=== PATIENT | male | born 1960 | race Caucasian/White ===

== ENCOUNTER → 2022-01-24 13:43 | Outpatient (CLI) | payer OTHER, SELFPAY ==
--- NOTE | ~2022-01-24 | US_ITS ---
EXAMINATION: US carotid duplex BI DATE: 01/24/2022 14:04 INDICATION: Near syncope. TECHNIQUE: Grayscale, color Doppler, and pulsed Doppler images of the cervical carotid arteries were obtained. The degree of vessel stenosis is placed in one of the following categories: normal, <50%, 5 0-69%, >=70% but less than near-occlusion, near-occlusion, or total occlusion. Note that percent sten osis relative to normal distal artery lumen diameter is indirectly measured from velocity measurement s as described by Galo, et al. Radiology 2003; 229:340-346. Notes: Normal: Peak systolic velocity <125 centimeters/sec and no plaque <50%. Peak systolic velocity <125 ( EDV <40; ICA/CCA PSV ratio <2.0; used these factors only a tandem lesions or low cardiac output or co ntralateral disease) 50-69 %: PSV 125-230 (EDV 40-100; ratio 2-4) >= 70% but less than near occlusion: PSV greater than 230 (EDV > 100; ratio> 4.0) Near Occlusion: PSV that is variable; markedly narrowed lumen Occlusion: Absent flow on color/spectral Doppler and no lumen on wallace scale. COMPARISON: None. FINDINGS: RIGHT: The right common carotid artery (CCA) peak systolic velocity (PSV) is 88 cm/s. The right internal car otid artery (ICA) PSV is 52 cm/s. The right ICA end-diastolic velocity (EDV) is 11 cm/s. The right IC A/CCA PSV ratio is 0.6. The external carotid artery (ECA) PSV is 71 cm/s. There is antegrade flow in the right vertebral artery. LEFT: The left CCA PSV is 88 cm/s. The left ICA PSV is 71 cm/s. The left ICA EDV is 19 cm/s. The left ICA/C CA PSV ratio is 0.8. The ECA PSV is 47 cm/s. There is antegrade flow in the left vertebral artery. IMPRESSION: 1. Less than 50% stenosis in the right internal carotid artery by sonographic criteria. 2. Less than 50% stenosis in the left internal carotid artery by sonographic criteria. Reviewed, dictated and finalized at location B. IMPRESSION: 1. Less than 50% stenosis in the right internal carotid artery by sonographic evangelista rajan. 2. Less than 50% stenosis in the left internal carotid artery by sonographic osvaldo adan.
== END ==
PROVIDERS: PCP Physician Assistant; Visit Provider Physician Assistant
DX: R29.90 Unspecified symptoms and signs involving the nervous system (principal); R55 Syncope and collapse; I65.23 Occlusion and stenosis of bilateral carotid arteries
CPT/HCPCS: 93880

== ENCOUNTER 2022-02-01 14:28 | Outpatient (CLI) | payer OTHER, SELFPAY ==
--- NOTE | ~2022-02-01 | MR_ITS ---
EXAMINATION: MR brain/brain stem wo/w con DATE: 02/01/2022 15:25 INDICATION: Stroke. Dizziness. Near syncope. TECHNIQUE: Magnetic resonance imaging (MRI) of the brain and brainstem was performed without and with 17 mL MultiHance intravenous contrast. COMPARISON: None. FINDINGS: There is no intracranial hemorrhage, acute infarction, or abnormal intracranial mass lesion . There are scattered areas of nonspecific increased T2-weighted signal intensity in the cerebral whi te matter, which is within normal limits for the patient's age. The ventricles are normal in size. Th e paranasal sinuses are clear. The orbits are normal. There is a small left mastoid effusion. IMPRESSION: 1. Normal aging brain. Reviewed, dictated and finalized at location A. IMPRESSION: 1. Normal aging brain.
== END 2022-02-01 14:29 | disposition home or self-care (01) ==
PROVIDERS: PCP Physician Assistant; Visit Provider Physician Assistant
DX: R29.90 Unspecified symptoms and signs involving the nervous system (principal); R55 Syncope and collapse
CPT/HCPCS: 70553; A9577

== ENCOUNTER 2023-05-10 09:13 | Outpatient (CLI) | payer OTHER, SELFPAY ==
--- NOTE | ~2023-05-10 | XR_ITS ---
Left foot Technique: AP, oblique, and lateral views were obtained. Clinical History: Pain Findings: No acute fracture or dislocation is seen. Osseous alignment is anatomic. Joint spaces are p reserved without erosive or degenerative change. Soft tissues are unremarkable. Impression: Unremarkable left foot radiographs. Reviewed, dictated and finalized at location . TENANT GOVERNOR Impression: Unremarkable left foot radiographs.
== END 2023-05-10 09:14 | disposition home or self-care (01) ==
PROVIDERS: PCP Family Medicine; Visit Provider Physician Assistant
DX: M79.672 Pain in left foot (principal)
CPT/HCPCS: 73630

== ENCOUNTER 2024-08-04 10:32 | Outpatient (CLI) | payer OTHER, SELFPAY ==
--- NOTE | ~2024-08-04 | CT_ITS ---
CT Scan of the Chest without Contrast: Clinical Indication: Lung cancer screening, nicotine dependence Technique: Contiguous sections were acquired throughout the chest without intravenous contrast. Dose reduction technique was used on this scan by utilizing automated exposure control and iterative recon struction technique. The dose-length product (DLP) was 163.91 mGy-cm. Findings: There is no evidence of any significant mediastinal, hilar or axillary lymphadenopathy. Extensive cor onary artery calcifications are present. Probable prior CABG. There is no evidence of pleural or pericardial effusion. No pulmonary nodule evident. There is minimal bibasilar scarring or atelectatic change. Images through the upper abdomen reveal no abnormalities. Impression: Lung RADS 1: Negative. 12 month follow-up screening CT advised. Reviewed, dictated and finalized at location . Impression: Lung RADS 1: Negative. 12 month follow-up screening CT advised.
--- OUTSIDE RECORDS SUMMARY | 2024-08-04 11:48 | XMS_ITS ---
Author Organization Unknown Address [address] [place] [phone] Phone Care Team Providers Care Senior Science Consultant Name Role Phone POLO MILLAN Attending Unavailable ER PHYSICIAN Secondary Unavailable Results CBC w/AUTOMATED DIFF - Colle ct Date/Time: 01/18/2022 09:45 [facility] ID: [id number] [address] [place], [place], [id number] LOINC: 35509-3 Test Value Unit Reference Range Code Code System Flag WBC 7.4 th/ul L=4.0 H=10.5 6690-2 LOINC RBC 4.82 mil/ul L=4.50 H=6.00 789-8 LOINC HGB 15.9 g/dl L=13.5 H=18.0 718-7 LOINC HCT 44.8 % L=41.0 H=52.0 4544-3 LOINC MCV 93 fL L=78 H=100 787-2 LOINC MCH 33.0 pg L=27.0 H=32.0 785-6 LOINC H MCHC 35.5 g/dl L=32.0 H=36.0 786-4 LOINC RDW 11.8 % L=11.0 H=14.0 788-0 LOINC PLATELET 307 th/ul L=150 H=450 777-3 LOINC %NEUT 59.7 % L=50.0 H=70.0 770-8 LOINC %LYMPH 26.1 % L=20.0 H=40.0 736-9 LOINC %MONO 11.7 % L=0.0 H=10.0 5905-5 LOINC H %EOS 1.2 % L=0.0 H=3.0 713-8 LOINC %BASO 1.2 % L=0.0 H=2.0 706-2 LOINC %IG 0.1 % L=0.0 H=2.0 #NEUT 4.4 th/ul 751-8 LOINC #LYMPHS 1.9 th/ul 731-0 LOINC #MONOS 0.9 th/ul 742-7 LOINC #EOS 0.1 th/ul 711-2 LOINC #BASO 0.1 th/ul 704-7 LOINC #IG 0.0 th/uL 38376-6 LOINC NRBC 0 /100 WBC L=0 H=0 MANUAL DIFF NOT INDICATED 14962-7 LOINC COMPREHENSIVE METABOLIC PROF ILE - Collect Date/Time: 01/18/2022 09:45 [facility] ID: [id number] [address] [place] [address], [phone] LOINC: 69738-7 Test Value Unit Reference Range Code Code System Flag SODIUM 134 mmol/L L=136 H=145 2951-2 LOINC L POTASSIUM 3.9 mmol/L L=3.5 H=5.0 2823-3 LOINC CHLORIDE 99 mmol/L L=98 H=107 2075-0 LOINC CO2 18.6 mmol/L L=22.0 H=29.0 1962-0 LOINC L BUN 11 mg/dl L=6 H=21 3094-0 LOINC CREATININE 0.9 mg/dl L=0.7 H=1.2 2160-0 LOINC GLUCOSE 123 mg/dl L=74 H=109 2345-7 LOINC H CALCIUM 9.9 mg/dl L=8.6 H=10.5 49508-1 LOINC SGOT(AST) 24 U/L L=5 H=40 1920-8 LOINC SGPT(ALT) 25 U/L L=5 H=41 1744-2 LOINC ALKALINE PHOS 89 U/L L=40 H=129 6768-6 LOINC BILIRUBIN T 0.75 mg/dl L=0.00 H=1.20 1975-2 LOINC TOTAL PROTEIN 8.8 g/dL L=6.1 H=8.1 2885-2 LOINC H ALBUMIN 5.1 g/dl L=3.5 H=5.2 1751-7 LOINC GLOBULIN 3.7 g/dl L=2.3 H=3.5 65823-0 LOINC H A/G RATIO 1.4 % L=1.0 H=1.8 1759-0 LOINC AGE 61 yrs 53911-6 LOINC GFR-AA 111 L=60 H=999 33591-8 LOINC GFR-NON AA 91 L=60 H=999 41237-5 LOINC TROPONIN T - Collect Date/Ti me: 01/18/2022 09:45 [facility] ID: [id number] [address] [place] [address], [phone] LOINC: 6598-7 Test Value Unit Reference Range Code Code System Flag TROPONIN T < 0.010 ng/mL L=0.000 H=0.010 6598-7 LOINC PT(INR) / PTT - Collect Date /Time: 01/18/2022 09:45 [facility] ID: [id number] [address] [place] [address], [phone] LOINC: 15978-8 Test Value Unit Reference Range Code Code System Flag INR 1.0 L=0.9 H=1.2 6301-6 LOINC PTT W/O HEP 28 sec L=21 H=35 72466-9 LOINC PTT W HEP L=66 H=102 00893-0 LOINC PT ON IV HEPARIN? NO CK (CPK) - Collect Date/Time : 01/18/2022 09:45 [facility] ID: [id number] [address] [place] [address], [id number] LOINC: 2157-6 Test Value Unit Reference Range Code Code System Flag CK 79 U/L L=20 H=200 2157-6 LOINC CKMB - Collect Date/Time: 09:45 [facility] ID: [id number] [address] [place] [address], [id number] LOINC: 75645-7 Test Value Unit Reference Range Code Code System Flag CKMB 2 ng/ml L=0 H=8 90705-6 LOINC CK-CPK 79 U/L L=20 H=200 2157-6 LOINC MB% 2.5 % L=0.0 H=6.0 43764-1 LOINC MAGNESIUM - Collect Date/Eddie e: 01/18/2022 09:45 [facility] ID: [id number] [address] [place] [address], [phone] LOINC: 24740-1 Test Value Unit Reference Range Code Code System Flag MAGNESIUM 2.5 MG/DL L=1.6 H=2.6 91888-7 LOINC HGBA1C (GLYCOHEMOGLOBIN) - C ollect Date/Time: 01/18/2022 09:45 [facility] ID: [id number] [address] [place] [address], [phone] LOINC: 4548-4 Test Value Unit Reference Range Code Code System Flag HGBA1c(GLYCO) 5.8 % L=4.6 H=6.0 4548-4 LOINC MEAN BLD GLUC 120 mg/dl CHEST SINGLE VIEW FRONTAL - Completed: 01/18/2022 10:28 LOINC: \TM00\12FI\LM03\RM80\JENNA o\BM09\ \MRHo\ [address] [address] ---------NAME--------- NUMBER SEX AGE ADMIT DISC. XRAY# F/C TYPE LOCUS ABBEY JEFF [id number] M 61 01/18/22 CB8 O/P DATE OF : 1960 M/R# [id number] PH#: RM \MRHx\ LOCATION: TRANSCRIBED: 01/18/22 10:23 CHEST SINGLE VIEW FRONTAL [id number] COMPLETED:01/18/22 10:28 lianna [id number] presyncope, PHYSICIAN: POLO MILLAN RADIOLOGY REPORT ORDER DATE and TIME: 01/18/2022 0958 [id number] CHEST SINGLE VIEW FRONTAL DATE OF SERVICE: 01/18/22 09:58 PATIENT EXAM: Chest one-view AP erect HISTORY: Syncope COMPARISON: None FINDINGS: Cardiac silhouette and mediastinum are normal. Prior mediastinotomy . There is no pulmonary infiltrate. There minimal scarring or atelectasis left lower lobe There is no pleural effusion. Skeletal structures unremarkable IMPRESSION: Prior median sternotomy with heart size normal. No evidence of congestive heart failure or acute pulmonary infiltrate Minimal scarring or atelectasis in the left lower INTERPRETING RADIOLOGIST: Chau Mckinley D.O. ELECTRONICALLY SIGNED BY: Chau Mckinley D.O. Land Planner Initials: MLP Land Planner Time: 10:23 Land Planner Date: 01/18/22 Signed Date/Time: 01/18/22 10:23 UNSIGNED TRANSCRIPTIONS ARE PRELIMINARY REPORTS AND DO NOT REPRESENT MEDICAL OR LEGAL DOCUMENTS. CT HEAD WO - Completed: 12/29 10:29 LOINC: \TM00\12FI\LM03\RM80\JENNA o\BM09\ \MRHo\ [address] [address] ---------NAME--------- NUMBER SEX AGE ADMIT DISC. XRAY# F/C TYPE LOCUS ABBEY JEFF [id number] M 61 01/18/22 CB8 O/P DATE OF : 1960 M/R# [id number] PH#: RM \MRHx\ LOCATION: TRANSCRIBED: 01/18/22 10:[place] [id number] COMPLETED:01/18/22 10:29 lianna [id number] presyncope vision changes PHYSICIAN: POLO MILLAN RADIOLOGY REPORT ORDER DATE and TIME: 01/18/[id number] HEAD WO DATE OF SERVICE: 01/18/22 09:58 PATIENT EXAM: CT of the head without contrast. HISTORY: Near syncope. COMPARISON: None. TECHNIQUE: Contiguous axial images at 5 mm intervals were obtained from the base of the skull to the vertex of the calvarium. No contrast was given. FINDINGS: Extra-axial spaces: The CSF-containing spaces are normal in size and position.There are no extraaxial fluid collections. Hemorrhage: None Cerebral Parenchyma: There are no areas of abnormal density. Mcclain-white differentiation is normal. Cerebellum: Normal. Masses/Mass effect: None. There is no midline shift. Vasculature: Normal. Osseus Structures: Normal. Soft tissues/Sinuses: Normal. IMPRESSION: No acute intracranial abnormality. All CT scans are performed using dose optimization techniques as appropriate to the performed exam and include at least one of the following: Automated exposure control, adjustment of the mA and/or kV according to size, and the use of iterative reconstruction technique. INTERPRETING RADIOLOGIST: Elias Villa M.D. ELECTRONICALLY SIGNED BY: Elias Villa M.D. Land Planner Initials: JJB Land Planner Time: 10:24 Land Planner Date: 01/18/22 Signed Date/Time: 01/18/22 10:24 UNSIGNED TRANSCRIPTIONS ARE PRELIMINARY REPORTS AND DO NOT REPRESENT MEDICAL OR LEGAL DOCUMENTS. Social History Type Status Start Date End Date Code Code Syst em Sex Male Hospital Discharge Instructions Should you have any questions prior to discharge, please contact a member of your healthcare team. If you have left the hospital and have any questions, please contact your primary care physician. Reason For Referral No Data Found Plan of Treatment No Data Found Encounters Encounter Diagnosis Start Date Code Code Sys tem Syncope and collapse 01/18/2022 SNOMED- CT Personal Care Team Section Performer Name Performer Role Active Date Inactive Da te Imaging Narrative Notes [facility] \TM00\12FI\LM03\RM80\DRAo\BM09\ \MRHo\ [address] [address] ---------NAME--------- NUMBER SEX AGE ADMIT DISC. XRAY# F/C TYPE LOCUS ABBEY JEFF [id number] M 61 01/18/22 CB8 O/P DATE OF : 1960 M/R# [id number] #: RM \MRHx\ LOCATION: TRANSCRIBED: 01/18/22 10:[place] [id number] COMPLETED:01/18/22 10:29 lianna [id number] presyncope vision changes PHYSICIAN: POLO MILLAN RADIOLOGY REPORT ORDER DATE and TIME: 01/18/[id number] HEAD WO DATE OF SERVICE: 01/18/22 09:58 PATIENT EXAM: CT of the head without contrast. HISTORY: Near syncope. COMPARISON: None. TECHNIQUE: Contiguous axial images at 5 mm intervals were obtained from the base of the skull to the vertex of the calvarium. No contrast was given. FINDINGS: Extra-axial spaces: The CSF-containing spaces are normal in size and position.There are no extraaxial fluid collections. Hemorrhage: None Cerebral Parenchyma: There are no areas of abnormal density. Mcclain-white differentiation is normal. Cerebellum: Normal. Masses/Mass effect: None. There is no midline shift. Vasculature: Normal. Osseus Structures: Normal. Soft tissues/Sinuses: Normal. IMPRESSION: No acute intracranial abnormality. All CT scans are performed using dose optimization techniques as appropriate to the performed exam and include at least one of the following: Automated exposure control, adjustment of the mA and/or kV according to size, and the use of iterative reconstruction technique. INTERPRETING RADIOLOGIST: Elias Villa M.D. ELECTRONICALLY SIGNED BY: Elisa Villa M.D. Land Planner Initials: JJB Land Planner Time: : Land Planner Date: 01/18/22 Signed Date/Time: 01/18/22 10:24 UNSIGNED TRANSCRIPTIONS ARE PRELIMINARY REPORTS AND DO NOT REPRESENT MEDICAL OR LEGAL DOCUMENTS. [facility] \TM00\12FI\LM03\RM80\DRAo\BM09\ \MRHo\ [address] [address] ---------NAME--------- NUMBER SEX AGE ADMIT DISC. XRAY# F/C TYPE LOCUS ABBEY JEFF [id number] M 61 01/18/22 CB8 O/P DATE OF : 1960 M/R# [id number] PH#: RM \MRHx\ LOCATION: TRANSCRIBED: 01/18/22 10:23 CHEST SINGLE VIEW FRONTAL [id number] COMPLETED:01/18/22 10:28 lianna [id number] presyncope, PHYSICIAN: POLO MILLAN RADIOLOGY REPORT ORDER DATE and TIME: 01/18/2022 0958 [id number] CHEST SINGLE VIEW FRONTAL DATE OF SERVICE: 01/18/22 09:58 PATIENT EXAM: Chest one-view AP erect HISTORY: Syncope COMPARISON: None FINDINGS: Cardiac silhouette and mediastinum are normal. Prior mediastinotomy . There is no pulmonary infiltrate. There minimal scarring or atelectasis left lower lobe There is no pleural effusion. Skeletal structures unremarkable IMPRESSION: Prior median sternotomy with heart size normal. No evidence of congestive heart failure or acute pulmonary infiltrate Minimal scarring or atelectasis in the left lower INTERPRETING RADIOLOGIST: Cahu Mckinley D.O. ELECTRONICALLY SIGNED BY: Chau Mckinley D.O. Land Planner Initials: MLP Land Planner Time: : Land Planner Date: 01/18/22 Signed Date/Time: 01/18/22 10:23 UNSIGNED TRANSCRIPTIONS ARE PRELIMINARY REPORTS AND DO NOT REPRESENT MEDICAL OR LEGAL DOCUMENTS.
--- OUTSIDE RECORDS SUMMARY | 2024-08-04 11:48 | XMS_ITS | Encounter Summary ---
Author Organization [facility] Address [id number] [place] [address] Care Team Providers Care Boat Carpenter Mechanic Name Role Phone Nilsa Lemus MD Primary Care Provider [phone] Osmin Disla MD Unavailable Encounter Details Date Type Department Care Team (Late st Contact Info) Description 09/26/2022 Copper Mobile Message Enc [facility], [facility] [address] [place] [address] Osmin Disla MD [facility]. [facility] [address] [place] [address] Swelling Social History Tobacco Use Types Packs/Day Years Used Date Smoking Tobacco: Former Cigarettes 2 32 0 04/29/1981 - 04/29/2013 Smokeless Tobacco: Never Alcohol Use Standard Drinks/Week Comments Yes 50 (1 standard drink = 0.6 oz pu re alcohol) 4 DRINKS A NIGHT Humiliation, Afraid, Rape, and Kick questionnair e Answer Date Recorded Within the last year, have y ou been afraid of your partner or ex-partner? No 09/17/2022 Within the last year, have y ou been humiliated or emotionally abused in other ways by your partner or ex-partner? No Within the last year, have y ou been kicked, hit, slapped, or otherwise physically hurt by your partner or ex-partner? No 09/17/2022 Within the last year, have y ou been raped or forced to have any kind of sexual activity by your partner or ex-partner? No 09/17/2022 Overall Financial Resource Strain (CARDIA) Answe r Date Recorded How hard is it for you to pa y for the very basics like food, housing, medical care, and heating? Not hard at all 09/17/2022 Hunger Vital Sign Answer Date Recorded Within the past 12 months, y ou worried that your food would run out before you got the money to buy more. Never true 09/18/19 23 Within the past 12 months, t he food you bought just didn't last and you didn't have money to get more. Never true 09/17/2022 PRAPARE - Transportation Answer Date Re corded In the past 12 months, has l ack of transportation kept you from medical appointments or from getting medications? No 08/28 In the past 12 months, has l ack of transportation kept you from meetings, work, or from getting things needed for daily living? No 09/17/2022 Housing Stability Vital Sign Answer Vikram e Recorded In the last 12 months, was t here a time when you were not able to pay the mortgage or rent on time? No 09/17/2022 In the last 12 months, how many places have you lived? 1 09/17/2022 In the last 12 months, was t here a time when you did not have a steady place to sleep or slept in a senior care (including now)? No 09/17/2022 Sex and Gender Information Value Date Recorded Sex Assigned at Not on file Legal Sex Male 4:06 PM CDT Gender Identity Not on file Sexual Orientation Not on file COVID-19 Exposure Response Date Recorded In the last 10 days, have yo u been in contact with someone who was confirmed or suspected to have Coronavirus/COVID-19? No / Unsure 09/17/2022 5:35 AM CDT documented as of this encounter Functional Status * Are you deaf or do you have serious difficulty hearing Answer Date of Assessment Author Status No 09/17/2022 3:41 PM CDT Chapis Murphy RN Active * Are you blind or do you have serious difficulty seeing, even when wearing glasses? Answer Date of Assessment Author Status No 09/17/2022 3:41 PM Chapis Valente RN Active * Do you have serious difficulty walking or climbing stairs? Answer Date of Assessment Author Status No 09/17/2022 3:41 PM Chapis Valente RN Active * Do you have difficulty dressing or bathing? Answer Date of Assessment Author Status No 09/17/2022 3:41 PM Chapis Valente RN Active * Because of a physical, mental, or emotional condition, do you have difficulty doing errands alone such as visiting a doctor's office or shopping? Answer Date of Assessment Author Status No 09/17/2022 3:41 PM Chapis Valente RN Active documented as of this encounter Mental Status * Because of a physical, mental, or emotional condition, do you have serious difficulty concentrating, remembering, or making decisions? Answer Entry Date Author Status No 09/17/2022 3:41 PM Chapis Valente RN Active documented in this encounter Plan of Treatment Not on file documented as of this encounter Goals Goal Patient Goal Type Associated Problems Recent Progress Patient-Stated? Author Health - patient able to perform ADLs independently Lifestyle No Jayla Magaña RN documented as of this encounter Visit Diagnoses Not on filedocumented in this encounter Care Teams Boat Carpenter Mechanic Relationship Specialty Start Date End Date Nilsa Lemus MD [address] [place] [id number] PCP - General FAMILY PRACTICE 01/27/22 Osmin Disla MD [address] [address] Referring Physician VASCULAR SURGERY 01/27/22 documented as of this encounter
--- OUTSIDE RECORDS SUMMARY | 2024-08-04 11:48 | XMS_ITS | Encounter Summary ---
Author Organization [facility] Address [facility] [place] [address] Care Team Providers Care Telecommunications Line Installer Name Role Phone Nilsa Lemus MD Primary Care Provider [phone] Osmin Disla MD Unavailable Reason for Referral * Surgical (Routine) - Closed Specialty Diagnoses / Procedures Referred By Puneet santana Referred To Contact Diagnoses PVD (peripheral vascular disease) Procedures Case request operating room: BYPASS GRAFT FEMORAL POSTERIOR Osmin Disla MD [facility]. [facility] [address] [place] [address] Phone: tel: fax: Referral ID Status Reason Start Date Expiration Date Visits Re quested Visits Authorized [id number] Closed 08/22/2022 08/23/2023 1 1 Encounter Details Date Type Department Care Team (Late st Contact Info) Description 08/22/2022 Prep for Procedure [place] [facility] [place] [address] [place] [address] [facility]. [facility] [address] [place] [address] Social History Tobacco Use Types Packs/Day Years Used Date Smoking Tobacco: Former Cigarettes Q uit: 04/29/2013 Smokeless Tobacco: Never Alcohol Use Standard Drinks/Week Comments Yes 50 (1 standard drink = 0.6 oz pu re alcohol) 4 DRINKS A NIGHT Sex and Gender Information Value Date Recorded Sex Assigned at Not on file Legal Sex Male 4:06 PM CDT Gender Identity Not on file Sexual Orientation Not on file COVID-19 Exposure Response Date Recorded In the last 10 days, have yo u been in contact with someone who was confirmed or suspected to have Coronavirus/COVID-19? No / Unsure 08/20/2022 6:15 AM CDT documented as of this encounter Plan of Treatment Scheduled Orders Name Type Priority Associated Diagnoses Orde r Schedule Case request operating room: BYPASS GRAFT FEMORAL POSTERIOR Case Request Routine PVD (peripheral vascular disease) Once for 1 Occurrences starting 08/22/2022 until 08/22/2022 documented as of this encounter Results * MRSA SCREENING (09/03/2022 12:13 PM CDT) SPEC DESCRIPTION NASAL 09/03/2022 12:14 PM CDT [facility] SPECIAL REQUESTS NO SPECIAL REQUEST 09/03/2022 12:14 PM CDT [facility] CULTURE RESULT NO METHICILLIN RESISTANT STAPHYLOCOCCUS AUREUS ISOLATED 09/04/2022 11:06 AM CDT [facility] SPECIMEN FROM INTERNAL NOSE / Unknown 09/03/2022 12:13 PM CDT 09/03/2022 12:24 PM CDT Osmin Disla MD MICROBIOLOGY - GENERAL ORDERABLE S Final Result [facility] [address] [place] [address], [place] [phone] * (ABNORMAL) COMPREHENSIVE METABOLIC PANEL (09/03/2022 12:10 PM CDT) GLUCOSE 115(H) 70 - 99 MG/DL 09/03/2022 12:53 PM CDT [facility] BUN 15 7 - 18 MG/DL 09/03/2022 12:53 PM CDT [facility] CREATININE S/P/B 1.01 0.7 - 1.3 MG/DL 09/03/2022 12:53 PM CDT [facility] SODIUM S/P/B 134(L) 136 - 145 MMOL/L 09/03/2022 12:53 PM CDT [facility] POTASSIUM S/P/B 3.7 3.5 - 5.1 MMOL/L 09/03/2022 12:53 PM CDT [facility] CHLORIDE S/P/B 104 100 - 108 MMOL/L 09/03/2022 12:53 PM CDT [facility] CO2 24.0 21 - 32 MMOL/L 09/03/2022 12:53 PM CDT [facility] CALCIUM S/P/B 9.9 8.5 - 10.1 MG/DL 09/03/2022 12:53 PM CDT [facility] BILIRUBIN TOTAL S/P/B 0.9 0.2 - 1.2 MG/DL 09/03/2022 12:53 PM CDT [facility] Comment: THIS ASSAY IS NOT RECOMMENDED FOR PATIENTS UNDERGOING TREATMENT WITH ELTROMBOPAG DUE TO THE POTENTIAL FOR FALSELY ELEVATED RESULTS. TOTAL PROTEIN S/P/B 7.8 6.4 - 8.2 G/DL 09/03/2022 12:53 PM T [facility] ALBUMIN S/P/B 3.9 3.4 - 5.0 G/DL 09/03/2022 12:53 PM CDT [facility] AST 17 15 - 37 U/L 09/03/2022 12:53 PM CDT [facility] ALT 22 16 - 60 U/L 09/03/2022 12:53 PM CDT [facility] ALKALINE PHOSPHATASE S/P/B 85 50 - 136 U/L 09/03/2022 12:53 PM CDT [facility] ANION GAP 6.0 5 - 15 MMOL/L 09/03/2022 12:53 PM CDT [facility] BUN CREATININE RATIO 14.9 6 - 26 09/03/2022 12:53 PM CDT [facility] A/G RATIO 1.0 1.0 - 2.0 RATIO 09/03/2022 12:53 PM CDT [facility] GFR ESTIMATE 85(L) >90 ML/MIN/1.7 3 M2 09/03/2022 12:53 PM CDT [facility] Comment: NOTE: eGFR is not calculated for patients <18 years of age. This is an estimated GFR calculation using the new CKD EPI creatinine equation without race and so does not require a correction factor for race. This estimated GFR should not be used for calculating drug doses. 09/03/2022 12:1 0 PM CDT us Osmin Disla MD LABORATORY Final Result Performing Organization Address City/[facility] Co de Phone Number [facility] [address] [place] [id number], [place] [phone] * PROTIME/INR, VENOUS (09/03/2022 12:10 PM CDT) PROTIME 12.0 10.2 - 12.9 SEC 09/03/2022 12:47 PM CDT [facility] INR 1.0 09/03/2022 12:47 PM CDT [facility] Comment: Recommended INR Therapeutic Goals: 2.0-3.0 Routine Therapy 2.5-3.5 Mechanical Prosthetic Valves (High Risk) 09/03/2022 12:1 0 PM CDT us Osmin Disla MD LABORATORY Final Result [facility] [address] [place] [address], * (ABNORMAL) CBC W/DIFF AUTOMATED (09/03/2022 12:10 PM CDT) [facility] WBC 8.3 4.5 - 11.0 x10'3/uL 09/03/2022 12:30 PM CDT [facility] RBC 4.02(L) 4.70 - 6.10 x10'6/uL 09/03/2022 12:30 PM CDT [facility] HGB 13.8(L) 14.0 - 18.0 G/DL 09/03/2022 12:30 PM CDT [facility] HCT 38.7(L) 43.0 - 54.0 % 09/03/2022 12:30 PM CDT [facility] MCV 96.3(H) 80.0 - 94.0 FL 09/03/2022 12:30 PM CDT [facility] MCH 34.3(H) 27.0 - 31.0 PG 09/03/2022 12:30 PM CDT [facility] MCHC 35.7 32.0 - 36.0 G/DL 09/03/2022 12:30 PM CDT [facility] RDW 12.5 11.5 - 14.5 % 09/03/2022 12:30 PM CDT [facility] PLT 326 130 - 400 x10'3/uL 09/03/2022 12:30 PM CDT [facility] MPV 8.9(L) 9.3 - 12.2 FL 09/03/2022 12:30 PM CDT [facility] DIFFERENTIAL TYPE AUTOMATED DIFFERENTIAL 09/03/2022 12:30 PM CDT [facility] NEUTROPHILS % 64.9 % 09/03/2022 12:30 PM CDT [facility] LYMPHOCYTES % 21.3 % 09/03/2022 12:30 PM CDT [facility] MONOCYTES % 11.7 % 09/03/2022 12:30 PM CDT [facility] EOSINOPHILS 0.8 % 09/03/2022 12:30 PM CDT [facility] BASOPHILS 1.1 % 09/03/2022 12:30 PM CDT [facility] IMMATURE GRANS % 0.2 % 09/04/19 12:30 PM CDT [facility] ABS. NEUTROPHILS TOTAL 5.35 1.80 - 7.70 x10'3/uL 09/03/2022 12:30 PM CDT [facility] ABS. LYMPHOCYTES 1.76 1.00 - 4.80 x10'3/uL 09/03/2022 12:30 PM CDT [facility] ABS. MONOCYTES 0.97(H) 0.30 - 0.82 x10'3/uL 09/03/2022 12:30 PM CDT [facility] ABS. EOSINOPHILS 0.07 0.04 - 0.54 x10'3/uL 09/03/2022 12:30 PM CDT [facility] ABS. BASOPHILS 0.09(H) 0.01 - 0.08 x10'3/uL 09/03/2022 12:30 PM CDT [facility] ABS. IMMATURE GRANULOCYTES 0.02 0.00 - 0.49 x10'3/uL 09/03/2022 12:30 PM CDT [facility] 09/03/2022 12:1 0 PM CDT us Osmin Disla MD LABORATORY Final Result [facility] [address] [place] [address], documented in this encounter Visit Diagnoses Diagnosis PVD (peripheral vascular disease)- Primary Peripheral vascular disease, unspecified documented in this encounter Care Teams Telecommunications Line Installer Relationship Specialty Start Date End Date Nilsa Lemus MD [address] [place], [place] [id number] PCP - General FAMILY PRACTICE 01/27/22 Osmin Disla MD Three [facility]. [facility] [address] [place] [address] Referring Physician VASCULAR SURGERY 01/27/22 documented as of this encounter
--- OUTSIDE RECORDS SUMMARY | 2024-08-04 11:48 | XMS_ITS | Encounter Summary ---
Author Organization [facility] Address [facility] [place] [address] Care Team Providers Care Math Teacher Name Role Phone Nilsa Lemus MD Primary Care Provider [phone] Osmin Disla MD Unavailable Encounter Details Date Type Department Care Team (Late st Contact Info) Description 07/06/2022 Prep for Procedure [place] [facility] THREE [facility], [facility] [address] [place] [address] Osmin Disla MD Three [facility]. [facility] [address] [place] [address] Social History Tobacco Use Types [...] suspected to have Coronavirus/COVID-19? No / Unsure 07/05/2022 1:09 PM MANAGER SOFTWARE DEVELOPMENT documented as of this encounter Plan of Treatment Not on file documented as of this encounter Visit Diagnoses Not on filedocumented in this encounter Care Teams Math Teacher Relationship Specialty Start Date End Date Nilsa Lemus MD [address] [place] [address] PCP - General FAMILY PRACTICE 01/27/22 Osmin Disla MD [address] [place] [address] Referring Physician VASCULAR SURGERY 01/27/22 documented as of this encounter
--- OUTSIDE RECORDS SUMMARY | 2024-08-04 11:48 | XMS_ITS | Encounter Summary ---
Author Organization [facility] Address [facility] [place] [address] Care Team Providers Care Field Seismologist Name Role Phone Nilsa Lemus MD Primary Care Provider [phone] Osmin Disla MD Unavailable Encounter Details Date Type Department Care Team (Late st Contact Info) Description 03/09/2022 Prep for Procedure [place] [facility] THREE [facility] [address] [place] [address] Osmin Disla MD Three [facility]. [facility] [address] [place] [address] Social History Tobacco Use Types [...] suspected to have Coronavirus/COVID-19? No / Unsure 03/08/2022 7:45 AM CASING WORKER documented as of this encounter Plan of Treatment Not on file documented as of this encounter Visit Diagnoses Not on filedocumented in this encounter Care Teams Field Seismologist Relationship Specialty Start Date End Date Nilsa Lemus MD [address] [place] [address] PCP - General FAMILY PRACTICE 01/27/22 Osmin Disla MD [address] [place] [address] Referring Physician VASCULAR SURGERY 01/27/22 documented as of this encounter
--- OUTSIDE RECORDS SUMMARY | 2024-08-04 11:49 | XMS_ITS | Encounter Summary ---
Author Organization [facility] Address [facility] [place] [address] Care Team Providers Care Joy Loader Name Role Phone Nilsa Lemus MD Primary Care Provider [phone] Osmin Disla MD Unavailable Encounter Details Date Type Department Care Team (Late st Contact Info) Description 10/18/2023 Prep for Procedure [place] [facility] THREE [facility], [facility] [address] [place] [address] Osmin Disla MD Three [facility]. [facility] [address] [place] [address] Social History Tobacco Use Types [...] on file Sexual Orientation Not on file documented as of this encounter Functional Status * Are you deaf or do you have serious difficulty hearing Answer Date of Assessment Author Status No 09/17/2022 3:41 PM BRYONT Chapis Murphy RN Active * Are you blind or do you have serious difficulty seeing, even when wearing glasses? Answer Date of Assessment Author Status No 09/17/2022 3:41 PM BRYONT Chapis Murphy RN Active * Do you have serious difficulty walking or climbing stairs? Answer Date of Assessment Author Status No 09/17/2022 3:41 PM BRYONT Chapis Murphy RN Active * Do you have difficulty dressing or bathing? Answer Date of Assessment Author Status No 09/17/2022 3:41 PM CDT Chapis Murphy RN Active * Because of a physical, mental, or emotional condition, do you have difficulty doing errands alone such as visiting a doctor's office or shopping? Answer Date of Assessment Author Status No 09/17/2022 3:41 PM CDT Chapis Murphy RN Active documented as of this encounter Mental Status * Because of a physical, mental, or emotional condition, do you have serious difficulty concentrating, remembering, or making decisions? Answer Entry Date Author Status No 09/17/2022 3:41 PM CDT Chapis Murphy RN Active documented in this encounter Plan of Treatment Not on file documented as of this encounter Goals Goal Patient Goal Type Associated Problems Recent Progress Patient-Stated? Author Health - patient able to perform ADLs independently Lifestyle No Jayla Magaña RN documented as of this encounter Visit Diagnoses Not on filedocumented in this encounter Care Teams Joy Loader Relationship Specialty Start Date End Date Nilsa Lemus MD [address] [place] [address] PCP - General FAMILY PRACTICE 01/27/22 Osmin Disla MD [address] [address] Referring Physician VASCULAR SURGERY 01/27/22 documented as of this encounter
--- OUTSIDE RECORDS SUMMARY | 2024-08-04 11:49 | XMS_ITS | Encounter Summary ---
Author Organization [facility] Address [facility] [place] [address] Care Team Providers Care Objective C Developer Name Role Phone Nilsa Lemus MD Primary Care Provider Osmin Disla MD Unavailable Encounter Details Date Type Department Care Team (Late st Contact Info) Description 04/27/2022 Prep for Procedure [place] [facility], [facility] [address] [place] [address] Osmin Disla MD Three [facility]. [facility] [address] [place] [address] Social History Tobacco Use Types [...] suspected to have Coronavirus/COVID-19? No / Unsure 04/24/2022 5:56 AM IT TECHNICAL SPECIALIST documented as of this encounter Plan of Treatment Not on file documented as of this encounter Visit Diagnoses Not on filedocumented in this encounter Care Teams Objective C Developer Relationship Specialty Start Date End Date Nilsa Lemus MD [address] [place] [address] PCP - General FAMILY PRACTICE 01/27/22 Osmin Dilsa MD [address] [place] [address] Referring Physician VASCULAR SURGERY 01/27/22 documented as of this encounter
--- OUTSIDE RECORDS SUMMARY | 2024-08-04 11:49 | XMS_ITS | Clinical Summary ---
Author Organization [facility] [address] Address [address] [place] [address] Care Team Providers Care Engineering Analyst Name Role Phone Nilsa Lemus MD Primary Care Provider [phone] Allergies Active Allergy Reactions Criticality Noted Date Comments Iodinated Contrast Media Nausea only High 08/04/24- Pt states reaction is nausea not SOB Iodine Iodine And Iodide Containing Products Penicillins Rash Medium Medications aspirin (ASPIR-LOW) 81 mg tablet take 1 Tablet by oral route every day 0 0 06/02/2015 Active omeprazole (PriLOSEC) 20 mg capsule take 1 capsule by oral route every day before a meal 0 0 02/23/2016 Active isosorbide mononitrate ER (IMDUR) 60 mg 24 hr tablet TAKE 2 TABLETS BY MOUTH EVERY DAY 60 tablet 11 03/09/2024 Active atorvastatin (LIPITOR) 40 mg tablet TAKE 1 TABLET(40 MG) BY MOUTH DAILY 90 tablet 1 03/16/2024 Active metoprolol tartrate (LOPRESSOR) 50 mg immediate release tablet TAKE 1 TABLET(50 MG) BY MOUTH TWICE DAILY 180 tablet 1 04/13/2024 Active clopidogreL (PLAVIX) 75 mg tablet TAKE 1 TABLET(75 MG) BY MOUTH DAILY 90 tablet 1 04/13/2024 Active nitroglycerin (NITROSTAT) 0.[address] 1 tablet (0.4 mg total) under the tongue every 5 (five) minutes as needed for chest pain 100 tablet 05/05/2024 Active rivaroxaban (Xarelto) 2.5 mg tablet TAKE 1 TABLET(2.5 MG) BY MOUTH DAILY 90 tablet 1 05/11/2024 Active NIFEdipine (NIFEdipine CC) 60 mg 24 hr tablet TAKE 1 TABLET(60 MG) BY MOUTH DAILY 90 tablet 2 06/18/2024 Active Active Problems Problem Noted Date Diagnosed Date S/P CABG (coronary artery bypass graft) 11/14/19 17 Hyponatremia 04/20/2015 Chronic coronary artery disease 04/12/2015 Angina pectoris 12/09/2014 Overview (08/03/2016): Angina pectoris Presence of stent in coronary artery 12/09/2014 Overview (08/03/2016): S/P coronary artery stent placement Dyslipidemia 12/09/2014 Overview (08/03/2016): Dyslipidemia Peripheral arterial occlusive disease 12/09/2014 Overview (08/03/2016): PVD (peripheral vascular disease) with claudication Benign hypertension 12/09/2014 Overview (08/03/2016): HTN (hypertension), benign Encounters Date Type Department Care Team Description 08/04/2024 9:15 AM CDT Office Visit [facility] [address] [place] [address] Saleem Maldonado MD Presence of stent in coronary artery (Primary Dx); S/P CABG (coronary artery bypass graft); Dyslipidemia from Last 3 Months Surgical History Surgery Date Site/Laterality Comments ANGIOPLASTY 2014, 2015 KNEE ARTHROSCOPY W/ LATERAL RELEASE 04/29/1983 - 04/28/1984 CORONARY ARTERY BYPASS GRAFT 04/29/2014 - 04/28/2015 HERNIA REPAIR 04/29/1967 - 04/28/1968 ABDOMINAL SURGERY 2014 left femoral ar phu bypass Medical History Medical History Date Comments GERD (gastroesophageal reflux disease) 2013 Arthritis 2014 Heart disease 2014 Hypertension 1994 Family History Medical History Relation Name Comments Hypertension Brother 2 Angel Other Brother 2 Angel Alive and well; Cancer Father Angel Lymphoma Father Angel Lymphoma; Breast cancer Mother Vidhi Cancer, breast ; Cancer Mother Vidhi Hypertension Mother Vidhi Lung cancer Mother Vidhi Cancer, lung; Relation Name Status Comments Brother 1 Alive Brother 2 Angel Father Angel Mother Vidhi Social History Tobacco Use Types Packs/Day Years Used Date Smoking Tobacco: Former Cigarettes 2 32.4 0 04/29/1981 - 10/01/2013 Smokeless Tobacco: Never Tobacco Cessation:Counseling Given: Not Answered Alcohol Use Standard Drinks/Week Comments Yes 10 (1 standard drink = 0.6 oz pu re alcohol) Sex and Gender Information Value Date Recorded Sex Assigned at Not on file Legal Sex Male 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 Gender Identity Male 01/04/2021 7:50 PM CDT Sexual Orientation Straight 01/04/2021 7: 50 PM CDT Obstetrics History Last Filed Vital Signs Vital Sign Reading Time Taken Comments Blood Pressure 124/74 08/04/2024 9:05 AM CDT Pulse 79 08/04/2024 9:05 AM CDT Temperature - - Respiratory Rate 12 11/13/2016 8:59 AM CDT Oxygen Saturation 96% 08/04/2024 9:05 AM CDT Inhaled Oxygen Concentration - - Weight 93 kg (205 lb) 08/04/2024 9:05 AM CDT Height 172.7 cm (5' 8 ) 08/04/2024 9:05 AM CDT Body Mass Index 31.17 08/04/2024 9:05 AM CDT Plan of Treatment Health Maintenance Due Date Last Done Comments Colon Cancer Screening-Colonoscopy 1961 Depression Screening 1961 Hepatitis C Screening 1961 Prostate Cancer Screening-PSA 1961 DTaP/Tdap/Td Vaccine (1 - Tdap) 02/07/1972 Hepatitis B Screening 1979 Regular Well Visit/Exam 18-64 1979 Pneumococcal vaccine <65 (1 of 2 - PCV) 02/07/1980 Lung Cancer Screening 2011 Zoster Vaccine (1 of 2) 2011 Influenza Vaccine (Season Ended) 2024 02/18/2022, 01/12/2020, 01/24/2019, Additional history exists Procedures Procedure Name Priority Date/Time Associated Diagnosis Comments POCT LIPID PANEL Routine 08/04/2024 11:4 2 AM CDT Dyslipidemia from Last 3 Months Results * POCT lipid panel (08/04/2024 11:42 AM CDT) Cholesterol, POC 159 mg/dL Comment:GLU = 119 HDL, POC 74 mg/dL Triglycerides, POC 68 mg/dL LDL Cholesterol POC 72 mg/dL Chol/HDL Ratio, POC 1.0 Non-HDL Cholesterol, POC 86 mg/dL Cholesterol Total, POC 159 mg/dL Capillary blood 08/04/2024 1 1:42 AM CDT Saleem Maldonado MD POINT OF CARE TEST ORDER TIFFANY Final Result from Last 3 Months Insurance Member Subscriber Plan / Payer (Ef fective 2017-Present) Name:Espinoza Fernandez Relation to Subscriber:Self Name:Espinoza Fernandez Payer ID:[id number] (NAIC) Type:[facility] HMO/PPO Address: [place] [id number] Care Teams Engineering Analyst Relationship Specialty Start Date End Date Nilsa Lemus MD PCP - General Family Medicine 01/05/21
--- OUTSIDE RECORDS SUMMARY | 2024-08-04 11:49 | XMS_ITS | Referral Summary ---
Author Organization [facility] [address] Address [address] [place] [address] Care Team Providers Care Finisher Hand Name Role Phone Nilsa Lemus MD Primary Care Provider [phone] Encounters Date Type Department Care Team Description 08/04/2024 9:15 AM CDT Office Visit [facility] Cardiology [address] [place] [address] Saleem Maldonado MD Presence of stent in coronary artery (Primary Dx); S/P CABG (coronary artery bypass graft); Dyslipidemia from Last 3 Months Allergies Active Allergy Reactions Criticality Noted Date [...] hypertension 12/09/2014 Overview (08/03/2016): HTN (hypertension), benign Social History Tobacco Use Types Packs/Day Years Used Date Smoking Tobacco: Former Cigarettes 2 32.4 0 04/29/1981 - 10/01/2013 Smokeless Tobacco: Never Tobacco Cessation:Counseling Given: Not Answered Alcohol Use Standard Drinks/Week Comments Yes 10 (1 standard drink = 0.6 oz pu re alcohol) Sex and Gender Information Value Date Recorded Sex Assigned at Not on file Legal Sex Male 9:20 PM WELL BLOWER Gender Identity Male 01/04/2021 7:50 PM CDT Sexual Orientation Straight 01/04/2021 7: 50 PM CDT Last Filed Vital Signs Vital Sign Reading [...] 08/04/2024 9:05 AM CDT Plan of Treatment Not on file Procedures Procedure Name Priority Date/Time Associated Diagnosis [...] Final Result from Last 3 Months Insurance [facility]PPO Address: [facility] [address] [place] [address] [facility] CHO[facility] H[facility]/PPO Address: [facility] [address] [place] [address] Care Teams Finisher Hand Relationship Specialty Start Date End Date Nilsa Lemus MD PCP - General Family Medicine 01/05/21
--- OUTSIDE RECORDS SUMMARY | 2024-08-04 11:49 | XMS_ITS | Encounter Summary ---
Author Organization [facility] Healthcare Address [address] [place] [address] Care Team Providers Care Auto Clutch Specialist Name Role Phone Nilsa Lemus MD Primary Care Provider [phone] Reason for Visit * Reason Comments Follow-up 7 mo f/u Coronary Artery Disease Encounter Details Date Type Department Care Team (Late st Contact Info) Description 08/04/2024 9:15 AM CDT Office Visit [facility] Cardiology [address] [id number] Saleem Maldonado MD [address] [address] Presence of stent in coronary artery (Primary Dx); S/P CABG (coronary artery bypass graft); Dyslipidemia Social History Tobacco Use Types Packs/Day Years Used Date Smoking Tobacco: Former Cigarettes 2 32.4 0 04/29/1981 - 10/01/2013 Smokeless Tobacco: Never Alcohol Use Standard Drinks/Week Comments Yes 10 (1 standard drink = 0.6 oz pu re alcohol) Sex and Gender Information Value Date Recorded Sex Assigned at Not on file Legal 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 Gender Identity Male 01/04/2021 7:50 PM CDT Sexual Orientation Straight 01/04/2021 7: 50 PM CDT documented as of this encounter Last Filed Vital Signs Vital Sign Reading Time Taken Comments Blood Pressure 124/74 08/04/2024 9:05 AM CDT Pulse 79 08/04/2024 9:05 AM CDT Temperature - - Respiratory Rate - - Oxygen Saturation 96% 08/04/2024 9:05 AM CDT Inhaled Oxygen Concentration - - Weight 93 kg (205 lb) 08/04/2024 9:05 AM CDT Height 172.7 cm (5' 8 ) 08/04/2024 9:05 AM CDT Body Mass Index 31.17 08/04/2024 9:05 AM CDT documented in this encounter Progress Notes * Saleem Maldonado MD - 08/04/2024 9:15 AM CDT [facility] FOLLOW UP 08/04/2024 Espinoza Fernandez is a 64 y.o. male who presents for follow up of coronary artery disease. This is a patient who presented with high-grade stenosis in the LAD and distal circumflex in March of 2015. Hewas referred to surgery since he had high-grade complex LAD disease involving a diagonal bifurcation. He initially did well and then began to have ischemic problems in the years that followed becauseof occlusion of the distal limb of his circumflex saphenous vein graft. Angiographically this appeared to be due to a very large size discrepancy with a large patulous segment of vein anastomosed to a small distal posterior circumflex branch. The patient underwent interventional revascularization of this anastomosis on a couple of occasions and has been managed medically since then. Understandably he has reported occasional ischemic symptoms which have not been particularly limiting and respondwell to nitroglycerin tablets when they do occur. The patient underwent surgical revascularization of the right lower extremity in August of 2022. He returns to the office today for scheduled follow-up appointment. He is doing very well he has noischemic symptoms at all. He follows with his PCP there are no new medical problems otherwise. REVIEW OF SYSTEMS General ROS: negative for - chills, fatigue, fever, malaise, night sweats, weight gain or weight loss Psychological ROS: negative for - anxiety, depression, memory difficulties or sleep disturbances Ophthalmic ROS: negative for - blurry vision, decreased vision, loss of vision or scotomata ENT ROS: negative for - epistaxis, headaches, hearing change, nasal congestion, nasal discharge, sore throat, vertigo or visual changes Hematological and Lymphatic ROS: negative for - bleeding problems, blood clots, bruising, fatigue or weight loss Endocrine ROS: negative for - hot flashes, palpitations, polydipsia/polyuria or unexpected weight changes Respiratory ROS: negative for - cough, hemoptysis, orthopnea, shortness of breath, tachypnea or wheezing Cardiovascular ROS: negative for - chest pain, dyspnea on exertion, edema, irregular heartbeat, loss of consciousness, murmur, orthopnea, palpitations, paroxysmal nocturnal dyspnea, rapid heart rate or shortness of breath Gastrointestinal ROS: negative for - abdominal pain, appetite loss, blood in stools, constipation, diarrhea, gas/bloating, heartburn, hematemesis, melena or nausea/vomiting Genito-Urinary ROS: negative for - dysuria, erectile dysfunction or hematuria Musculoskeletal ROS: negative for - joint pain, muscle pain or muscular weakness Dermatological ROS: negative for dry skin, eczema, pruritus and rash HOME MEDICATIONS Current Outpatient Medications: aspirin (ASPIR-LOW) 81 mg tablet, take 1 Tablet by oral route every day, Disp: 0, Rfl: 0 atorvastatin (LIPITOR) 40 mg tablet, TAKE 1 TABLET(40 MG) BY MOUTH DAILY, Disp: 90 tablet, Rfl: 1 clopidogreL (PLAVIX) 75 mg tablet, TAKE 1 TABLET(75 MG) BY MOUTH DAILY, Disp: 90 tablet, Rfl: 1 isosorbide mononitrate ER (IMDUR) 60 mg 24 hr tablet, TAKE 2 TABLETS BY MOUTH EVERY DAY, Disp: 60 tablet, Rfl: 11 metoprolol tartrate (LOPRESSOR) 50 mg immediate release tablet, TAKE 1 TABLET(50 MG) BY MOUTH TWICEDAILY, Disp: 180 tablet, Rfl: 1 NIFEdipine (NIFEdipine CC) 60 mg 24 hr tablet, TAKE 1 TABLET(60 MG) BY MOUTH DAILY, Disp: 90 tablet, Rfl: 2 nitroglycerin (NITROSTAT) 0.4 mg SL tablet, Place 1 tablet (0.4 mg total) under the tongue every 5 (five) minutes as needed for chest pain, Disp: 100 tablet, Rfl: 0 omeprazole (PriLOSEC) 20 mg capsule, take 1 capsule by oral route every day before a meal, Disp: 0,Rfl: 0 rivaroxaban (Xarelto) 2.5 mg tablet, TAKE 1 TABLET(2.5 MG) BY MOUTH DAILY, Disp: 90 tablet, Rfl: 1 LABS AND OTHER DIAGNOSTIC TESTS No results found for: CHOL No results found for: HDL No results found for: LDLCALC No results found for: TRIG No results found for: CHOLHDL Lab Results Component Value Date WBC 9.9 05/05/2015 HGB 9.6 (L) 05/05/2015 HCT 26.2 (L) 05/01/2015 MCV 97.0 (H) 05/01/2015 No lab exists for component: LABALBU PHYSICAL EXAM Vitals BP 124/74 (BP Location: Right arm, Patient Position: Sitting) Pulse 79 Ht 172.7 cm (5' 8 ) Wt 93 kg (205 lb) SpO2 96% BMI 31.17 kg/m?? Physical Examination: General appearance - alert, well appearing, and in no distress, oriented to person, place, and time and acyanotic, in no respiratory distress Mental status - affect appropriate to mood Eyes - extraocular eye movements intact, sclera anicteric, no pallor Ears - external earsappear normal, hearing grossly normal bilaterally Nose - normal and patent, no erythema or discharge Mouth - mucous membranes moist, pharynx appears normal, dental hygiene good and tongue normal Neck - supple, no significant neck masses, carotids upstroke normal bilaterally, no bruits, no JVD Chest - clear to auscultation, no wheezes, rales or rhonchi, symmetric air entry, no tachypnea, retractions or cyanosis Heart - normal rate, regular rhythm, normal S1, S2, no murmurs, rubs, clicks or gallops, no JVD Abdomen - soft, nontender, nondistended, no masses or organomegaly bowel sounds normal Neurological - alert, oriented, normal speech, no focal findings or movement disorder noted Musculoskeletal - no joint tenderness, deformity or swelling, no muscular tenderness noted Extremities - peripheral pulses normal, no pedal edema, no clubbing or cyanosis Skin - normal coloration and turgor, no rashes, no suspicious skin lesions noted ASSESSMENT Espinoza Cook was seen today for follow-up and coronary artery disease. Diagnoses and all orders for this visit: Presence of stent in coronary artery S/P CABG (coronary artery bypass graft) PLAN/RECOMMENDATIONS Continue current medications regimen of dual anti-platelet therapy along with low-dose Xarelto, beta-fab and calcium channel fab seems to be keeping him stable Will have to get records of his vascular surgery in his lower extremity particularly if we ever need to perform another coronary angiogram regarding vascular access concerns Continue follow-up at 6 month intervals or p.r.n. Saleem Maldonado MD documented in this encounter Miscellaneous Notes * Addendum Note - Tosha Alicea MA - 08/04/2024 9:15 AM CDTAddended by: TOSHA ALICEA on: 08/04/2024 11:43 AM Modules accepted: Orders documented in this encounter Plan of Treatment Not on file documented as of this encounter Procedures Procedure Name Priority Date/Time Associated Diagnosis Comments POCT LIPID PANEL Routine 08/04/2024 11:4 2 AM CDT Dyslipidemia documented in this encounter Results * POCT lipid panel (08/04/2024 11:42 AM CDT) Cholesterol, POC 159 mg/dL Comment:GLU = 119 HDL, POC 74 mg/dL Triglycerides, POC 68 mg/dL LDL Cholesterol POC 72 mg/dL Chol/HDL Ratio, POC 1.0 Non-HDL Cholesterol, POC 86 mg/dL Cholesterol Total, POC 159 mg/dL Capillary blood 08/04/2024 1 1:42 AM CDT us Saleem Maldonado MD POINT OF CARE TEST ORDER TIFFANY Final Result documented in this encounter Visit Diagnoses Diagnosis Presence of stent in coronary artery- Primary S/P CABG (coronary artery bypass graft) Postsurgical aortocoronary bypass status Dyslipidemia Other and unspecified hyperlipidemia documented in this encounter Care Teams Auto Clutch Specialist Relationship Specialty Start Date End Date Nilsa Lemus MD PCP - General Family Medicine 01/05/21 documented as of this encounter
--- OUTSIDE RECORDS SUMMARY | 2024-08-04 11:49 | XMS_ITS | Clinical Summary ---
Author Organization [facility] Address [address] [place] [address] Care Team Providers Care Hogshead Press Operator Name Role Phone Nilsa Lemus MD Primary Care Provider [phone] Osmin Disla MD Unavailable Allergies Active Allergy Reactions Criticality Noted Date Comments Iodine Nausea and Vomiting 01/29/2022 Penicillins Hives 01/29/2022 Medications atorvastatin (LIPITOR) 40 MG tablet Take 1 tablet (40 mg total) by mouth nightly at bedtime. 6 Active clopidogrel (PLAVIX) 75 MG tablet Take 1 tablet (75 mg total) by mouth daily. 2 Active isosorbide mononitrate ER (IMDUR) 60 MG 24 hr tablet Take 1 tablet (60 mg total) by mouth 2 (two) times a day. 5 Active metoprolol tartrate (LOPRESSOR) 50 MG tablet Take 1 tablet (50 mg total) by mouth 2 (two) times daily. 6 Active NIFEdipine ER (ADALAT CC) 60 MG 24 hr tablet Take 1 tablet (60 mg total) by mouth daily. 2 Active omeprazole (PRILOSEC) 20 MG capsule Take 1 capsule (20 mg total) by mouth nightly. 6 Active aspirin 81 MG chewable tablet Chew 1 tablet (81 mg total) by mouth daily. Active rivaroxaban (XARELTO) 2.5 MG tabletIndication s:Peripheral Arterial Disease Take 1 tablet (2.5 mg total) by mouth 2 (two) times daily. Indications: Disease of the Peripheral Arteries 60 tablet 3 Active Active Problems Problem Noted Date Diagnosed Date Peripheral vascular disease 09/17/2022 PVD (peripheral vascular disease) 08/22/2022 Overview (08/22/2022): Added automatically from request for surgery [id number] Infected tooth 03/03/2022 Coronary bypass graft mechanical complication Hyponatremia 04/20/2015 Chronic coronary artery disease 04/12/2015 Angina pectoris 12/09/2014 Overview (03/08/2022): Angina pectoris Benign hypertension 12/09/2014 Overview (03/08/2022): HTN (hypertension), benign Dyslipidemia 12/09/2014 Overview (03/08/2022): Dyslipidemia Peripheral arterial occlusive disease 12/09/2014 Overview (03/08/2022): PVD (peripheral vascular disease) with claudication Presence of stent in coronary artery 12/09/2014 Overview (03/08/2022): S/P coronary artery stent placement Immunizations Name Administration Dates Next Due Influenza (Generic) 04/16/2016 Influenza Adult (Generic) 02/18/2022,01/12/2020, 01/24/2019,02/08/2018 Family History Medical History Relation Comments Hypertension Brother 1 Hypertension Brother 2 Lymphoma Father Breast Cancer Mother Hypertension Mother Lung Cancer Mother Relation Status Comments Brother 1 Alive Brother 2 Alive Father Mother Social History Tobacco Use Types Packs/Day Years [...] place to sleep or slept in a long-term (including now)? No 09/17/2022 Sex and Gender Information Value Date Recorded Sex Assigned at Not on file Legal Sex Male 4:06 PM CDT Gender Identity Not on file Sexual Orientation Not on file Last Filed Vital Signs Vital Sign Reading Time Taken Comments Blood Pressure 135/88 12/03/2023 10:45 AM CDT Pulse 81 12/03/2023 10:45 AM CDT Temperature 36.5 C (97.7 F) 09/20/2022 3:44 PM CDT Respiratory Rate 14 12/03/2023 10:45 AM CDT Oxygen Saturation 96% 12/03/2023 10:45 AM CDT Inhaled Oxygen Concentration - - Weight 88.7 kg (195 lb 8.8 oz) 12/03/2023 6:52 A M CDT Height 172.7 cm (5' 8 ) 12/03/2023 6:52 AM CDT Body Mass Index 29.73 12/03/2023 6:52 AM CDT Plan of Treatment Health Maintenance Due Date Last Done Comments ASCVD LDL 1961 ASCVD Statin 1961 Colorectal Cancer Screening Colonoscopy (10 Years) 1961 Annual Physical 02/07/1964 Pneumococcal Vaccine: Pediatrics (0 to 5 Years) and At-Risk Patients (6 to 64 Years) (1 of 2 - PCV) 1967 Hepatitis C 1979 DTaP, Tdap and Td Vaccines (1 - Tdap) 02/07/1980 Lung Cancer Screening 2011 Zoster Vaccines (1 of 2) 2011 RSV Immunization or 60+ Years (1 - Risk 60-74 years 1-dose series) 2021 COVID-19 Vaccine ( season) 2023 02/18/2022, 05/11/2021, 07/23/2020, Additional history exists Meningococcal B Vaccine Aged Out No l onger eligible based on patient's age to complete this topic Meningococcal Vaccine Aged Out No onur coco eligible based on patient's age to complete this topic RSV Immunizations Under 20 Months Aged Out No longer eligible based on patient's age to complete this topic Goals Goal Patient Goal Type Associated Problems Recent Progress Patient-Stated? Author Health - patient able to perform ADLs independently Lifestyle No Jayla Magaña, RN Medical Devices Implanted Type Area Wiring Mechanic Device Identifier Shelf Expiration Date Model / Serial / Lot Graft Vasc 80cm 6mm Thnwl Gortx Remvbl Ring; Ln 60 - [id number] Implanted:Qty : 1 on 09/17/2022 by Osmin Disla MD at [facility] Graft Right: Arterial [employer] [id number] 03/12/2027 [id number] / [id number] / Description:Right femoral ar phu bypass Insurance [facility] Advance Directives * Full Code (Latest Code Status on File) Date Activated Date Inactivated Comments 09/18/2022 12:01 AM 09/20/2022 8:42 PM Care Teams Hogshead Press Operator Relationship Specialty Start Date End Date Nilsa Lemus MD [address] [place] [address] PCP - General FAMILY PRACTICE 01/27/22 Osmin Disla MD Three [facility]. [address] [place] [address] Referring Physician VASCULAR SURGERY 01/27/22
== END 2024-08-04 10:33 | disposition home or self-care (01) ==
PROVIDERS: PCP Family Medicine; Visit Provider Student in an Organized Health Care Education/Training Program
DX: Z12.2 Encounter for screening for malignant neoplasm of respiratory organs (principal); Z87.891 Personal history of nicotine dependence
CPT/HCPCS: 71271

== ENCOUNTER 2025-01-21 10:27 | Outpatient (CLI) | payer OTHER, SELFPAY ==
--- NOTE | ~2025-01-21 | XR_ITS ---
XR lumbar spine 2-3V Indication: M25.551 - Pain in right hip Comparison: None Findings: The vertebral heights are intact. No fracture or subluxation. Moderate loss of disc height at L4-5 and L5-S1. Soft tissues unremarkable Impression: No acute abnormality. Reviewed, dictated and finalized at location A. Impression: No acute abnormality.
--- NOTE | ~2025-01-21 | XR_ITS ---
EXAMINATION: XR hip BI 2V w AP pelvis, 01/21/2025 10:30 CDT HISTORY: M25.551 - Pain in right hip COMPARISON: No comparisons available. Findings: No acute fracture or malalignment. No significant degenerative changes. Soft tissues unremarkable. Impression: No acute fracture or malalignment. Reviewed, dictated and finalized at location A. Impression: No acute fracture or malalignment.
== END 2025-01-21 10:28 | disposition home or self-care (01) ==
PROVIDERS: PCP Family Medicine; Visit Provider Student in an Organized Health Care Education/Training Program
DX: M25.551 Pain in right hip (principal); M54.50 Low back pain, unspecified
CPT/HCPCS: 72100; 73521

== ENCOUNTER 2025-03-26 17:58 | Emergency (ER) | payer OTHER, SELFPAY ==
[2025-03-26] VITALS (9 sets, daily range): BP systolic 138–161; BP diastolic 85–99; PULSE 81–107; RESP 13–19; TEMP 36.6–37.1; O2SAT 95–99
--- NOTE | ~2025-03-26 | XR_ITS ---
EXAMINATION: XR chest 2V DATE: 03/26/2025 18:23 INDICATION: Chest pain. TECHNIQUE: Frontal and lateral views of the chest were obtained. COMPARISON: None. FINDINGS: Borderline enlarged heart. Atherosclerotic aorta. Postoperative changes. Lungs are free of acute processes. IMPRESSION: 1. No acute pulmonary findings. Postsurgical changes of the heart and significant atherosclerotic aorta. Reviewed, dictated and finalized at location T. RT CONDENSER ATTENDANT IMPRESSION: 1. No acute pulmonary findings. Postsurgical changes of the heart and significa nt atherosclerotic aorta.
--- OUTSIDE RECORDS SUMMARY | 2025-03-26 18:01 | XMS_ITS | Clinical Summary ---
Author Organization [facility] Address [address] [place] [address] Care Team Providers Care Risk Consulting Treasury Director Name Role Phone Nilsa Lemus MD Primary Care Provider [phone] Osmin Disla MD Unavailable Allergies Active Allergy [...] (08/22/2022): Added automatically from request for surgery [id number] Infected tooth 03/03/2022 Coronary bypass graft mechanical complication Hyponatremia 04/20/2015 Chronic coronary artery disease 04/12/2015 Angina pectoris 12/09/2014 Overview (03/08/2022): Angina pectoris Benign hypertension 12/09/2014 Overview (03/08/2022): HTN (hypertension), benign Dyslipidemia 12/09/2014 Overview (03/08/2022): Dyslipidemia Peripheral arterial occlusive disease 12/09/2014 Overview (03/08/2022): PVD (peripheral vascular disease) with claudication Presence of stent in coronary artery 12/09/2014 Overview (03/08/2022): S/P coronary artery stent placement Immunizations Immunization Administration Dates Next Due Influenza (Generic) 04/16/2016 [...] place to sleep or slept in a retirement (including now)? No 09/17/2022 Sex and Gender [...] A M CDT Height 172.7 cm (5' 8) 12/03/2023 6:52 AM CDT Body Mass Index 29.73 12/03/2023 6:52 AM CDT Plan of Treatment Health Maintenance Due Date Last Done Comments ASCVD LDL 1961 ASCVD Statin 1961 Colorectal Cancer Screening Colonoscopy (10 Years) 1961 Annual Physical 02/07/1964 Hepatitis C 1979 DTaP, Tdap and Td Vaccines (1 - Tdap) 02/07/1980 Pneumococcal Vaccine: 50+ Years (1 of 2 - PCV) 02/07/1980 Zoster Vaccines (1 of 2) 2011 RSV Immunization or 60+ Years (1 - Risk 60-74 years 1-dose series) 2021 COVID-19 Vaccine ( - 2024- season) 2024 02/18/2022, 05/11/2021, 07/23/2020, Additional history exists Influenza Adult (#1) 2025 02/18/2022, 01/12/2020, 01/24/2019, Additional history exists Hepatitis A Vaccines Aged Out No long er eligible based on patient's age to complete this topic Meningococcal B Vaccine Aged Out No l [...] ADLs independently Lifestyle No Jayla Magaña RN Medical Devices Implanted Type Area Country Printer Device Identifier Shelf Expiration Date Model / Serial / Lot Graft Vasc 80cm 6mm Thnwl Gortx Remvbl Ring; [address] 60 - [id number] Implanted:Qty : 1 on 09/17/2022 by Osmin Disla MD at [facility] Graft Right: Arterial [employer] [id number] 03/12/2027 [id number] / [id number] / Description:Right femoral ar phu bypass Insurance [facility] Advance Directives * Full Code (Latest Code Status on File) Date Activated Date Inactivated Comments 09/18/2022 12:01 AM 09/20/2022 8:42 PM Care Teams Risk Consulting Treasury Director Relationship Specialty Start Date End Date Nilsa Lemus MD [address] [place] [address] PCP - General FAMILY PRACTICE 01/27/22 Osmin Disla MD [facility]. [address] [address] Referring Physician VASCULAR SURGERY 01/27/22
--- OUTSIDE RECORDS SUMMARY | 2025-03-26 18:01 | XMS_ITS | Encounter Summary ---
Author Organization [facility] Address [facility]ly [facility] [place] [address] Care Team Providers Care Cloth Weaver Name Role Phone Nilsa Lemus MD Primary Care Provider [phone] Osmin Disla MD Unavailable Encounter Details Date Type Department Care Team (Late st Contact Info) Description 07/06/2022 Prep for Procedure [facility], [facility] [address] [place] [address] Osmin Disla MD Three [facility]. [facility] [address] [place] [address] Social History Tobacco Use Types [...] Coronavirus/COVID-19? No / Unsure 07/05/2022 1:09 PM INDUSTRIAL EDUCATION INSTRUCTOR documented as of this encounter Plan of Treatment Not on file documented as of this encounter Visit Diagnoses Not on filedocumented in this encounter Care Teams Cloth Weaver Relationship Specialty Start Date End Date Nilsa Lemus MD [address] [place] [address] PCP - General FAMILY PRACTICE 01/27/22 Osmin Disla MD [address] [place] [address] Referring Physician VASCULAR SURGERY 01/27/22 documented as of this encounter
--- OUTSIDE RECORDS SUMMARY | 2025-03-26 18:01 | XMS_ITS | Encounter Summary ---
Author Organization [facility] Address Formerly [facility] [place] [address] Care Team Providers Care Strapping Machine Tender Name Role Phone Nilsa Lemus MD Primary Care Provider [phone] Osmin Disla MD Unavailable Encounter Details Date Type Department Care Team (Late st Contact Info) Description 04/27/2022 Prep for Procedure [place], [facility] [address] [place] [address] Osmin Disla MD Three [facility]. [facility] [address] [place] [address] Social History Tobacco Use Types [...] Coronavirus/COVID-19? No / Unsure 04/24/2022 5:56 AM STRAPPING MACHINE TENDER documented as of this encounter Plan of Treatment Not on file documented as of this encounter Visit Diagnoses Not on filedocumented in this encounter Care Teams Strapping Machine Tender Relationship Specialty Start Date End Date Nilsa Lemus MD [address] [place] [address] PCP - General FAMILY PRACTICE 01/27/22 Osmin Disla MD [address] [place] [address] Referring Physician VASCULAR SURGERY 01/27/22 documented as of this encounter
--- OUTSIDE RECORDS SUMMARY | 2025-03-26 18:01 | XMS_ITS | Encounter Summary ---
Author Organization [facility] Address [facility] [place] [address] Care Team Providers Care Event Crew Technician Name Role Phone Nilsa Lemus MD Primary Care Provider [phone] Osmin Disla MD Unavailable Reason for Referral * Surgical (Routine) - Closed Specialty Diagnoses / Procedures Referred By Puenet santana Referred To Contact Diagnoses PVD (peripheral vascular disease) Procedures Case request operating room: BYPASS GRAFT FEMORAL POSTERIOR Osmin Disla MD [facility]. [facility] [address] [place] [address] Phone: tel: fax: Referral ID Status Reason Start Date Expiration Date Visits Re quested Visits Authorized [id number] Closed 08/22/2022 08/23/2023 1 1 Encounter Details Date Type Department Care Team (Late st Contact Info) Description 08/22/2022 Prep for Procedure [facility] [place] [address] [place] [address] Osmin Disla MD [facility]. [facility] [address] [place] [address] Social History Tobacco Use Types [...] SPEC DESCRIPTION NASAL 09/03/2022 12:14 PM CDT [facility] SPECIAL REQUESTS NO SPECIAL REQUEST 09/03/2022 12:14 PM CDT [facility] CULTURE RESULT NO METHICILLIN RESISTANT STAPHYLOCOCCUS AUREUS ISOLATED 09/04/2022 11:06 AM CDT [facility] SPECIMEN FROM INTERNAL NOSE / Unknown 09/03/2022 12:13 PM CDT 09/03/2022 12:24 PM CDT Osmin Disla MD MICROBIOLOGY - GENERAL ORDERABLE S Final Result [facility] [address] [place] [address], [place] [phone] * (ABNORMAL) COMPREHENSIVE METABOLIC PANEL (09/03/2022 12:10 PM CDT) GLUCOSE 115(H) 70 - 99 MG/DL 09/03/2022 12:53 PM CDT [facility] BUN 15 7 - 18 MG/DL 09/03/2022 12:53 PM CDT [facility] CREATININE S/P/B 1.01 0.7 - 1.3 MG/DL 09/03/2022 12:53 PM CDT [facility] SODIUM S/P/B 134(L) 136 - 145 MMOL/L 09/03/2022 12:53 PM CDT [facility] POTASSIUM S/P/B 3.7 3.5 - 5.1 MMOL/L 09/03/2022 12:53 PM CDT [facility] CHLORIDE S/P/B 104 100 - 108 MMOL/L 09/03/2022 12:53 PM CDT [facility] CO2 24.0 21 - 32 MMOL/L 09/03/2022 12:53 PM CDT [facility] CALCIUM S/P/B 9.9 8.5 - 10.1 MG/DL 09/03/2022 12:53 PM CDT [facility] BILIRUBIN TOTAL S/P/B 0.9 0.2 - 1.2 MG/DL 09/03/2022 12:53 PM CDT [facility] Comment: THIS ASSAY IS NOT RECOMMENDED FOR PATIENTS UNDERGOING TREATMENT WITH ELTROMBOPAG DUE TO THE POTENTIAL FOR FALSELY ELEVATED RESULTS. TOTAL PROTEIN S/P/B 7.8 6.4 - 8.2 G/DL 09/03/2022 12:53 PM T [facility] ALBUMIN S/P/B 3.9 3.4 - 5.0 G/DL 09/03/2022 12:53 PM CDT [facility] AST 17 15 - 37 U/L 09/03/2022 12:53 PM CDT [facility] ALT 22 16 - 60 U/L 09/03/2022 12:53 PM CDT [facility] ALKALINE PHOSPHATASE S/P/B 85 50 - 136 U/L 09/03/2022 12:53 PM CDT [facility] ANION GAP 6.0 5 - 15 MMOL/L 09/03/2022 12:53 PM CDT [facility] BUN CREATININE RATIO 14.9 6 - 26 09/03/2022 12:53 PM CDT [facility] A/G RATIO 1.0 1.0 - 2.0 RATIO 09/03/2022 12:53 PM CDT [facility] GFR ESTIMATE 85(L) >90 ML/MIN/1.7 3 M2 09/03/2022 12:53 PM CDT [facility] Comment: NOTE: eGFR is not calculated [...] MD LABORATORY Final Result Performing Organization Address City/[facility] Co de Phone Number [facility] [address] [place] [address], [place] [phone] * PROTIME/INR, VENOUS (09/03/2022 12:10 PM CDT) PROTIME 12.0 10.2 - 12.9 SEC 09/03/2022 12:47 PM CDT [facility] INR 1.0 09/03/2022 12:47 PM CDT [facility] Comment: Recommended INR Therapeutic Goals: 2.0-3.0 Routine Therapy 2.5-3.5 Mechanical Prosthetic Valves (High Risk) 09/03/2022 12:1 0 PM CDT us Osmin Disla MD LABORATORY Final Result [facility] [address] [place] [address], * (ABNORMAL) CBC W/DIFF AUTOMATED (09/03/2022 12:10 PM CDT) [facility] WBC 8.3 4.5 - 11.0 x10'3/uL 09/03/2022 12:30 PM CDT [facility] RBC 4.02(L) 4.70 - 6.10 x10'6/uL 09/03/2022 12:30 PM CDT [facility] HGB 13.8(L) 14.0 - 18.0 G/DL 09/03/2022 12:30 PM CDT [facility] HCT 38.7(L) 43.0 - 54.0 % 09/03/2022 12:30 PM CDT [facility] MCV 96.3(H) 80.0 - 94.0 FL 09/03/2022 12:30 PM CDT [facility] MCH 34.3(H) 27.0 - 31.0 PG 09/03/2022 12:30 PM CDT [facility] MCHC 35.7 32.0 - 36.0 G/DL 09/03/2022 12:30 PM CDT [facility] RDW 12.5 11.5 - 14.5 % 09/03/2022 12:30 PM CDT [facility] PLT 326 130 - 400 x10'3/uL 09/03/2022 12:30 PM CDT [facility] MPV 8.9(L) 9.3 - 12.2 FL 09/03/2022 12:30 PM CDT [facility] DIFFERENTIAL TYPE AUTOMATED DIFFERENTIAL 09/03/2022 12:30 PM CDT [facility] NEUTROPHILS % 64.9 % 09/03/2022 12:30 PM CDT [facility] LYMPHOCYTES % 21.3 % 09/03/2022 12:30 PM CDT [facility] MONOCYTES % 11.7 % 09/03/2022 12:30 PM CDT [facility] EOSINOPHILS 0.8 % 09/03/2022 12:30 PM CDT [facility] BASOPHILS 1.1 % 09/03/2022 12:30 PM CDT [facility] IMMATURE GRANS % 0.2 % 09/04/19 12:30 PM CDT [facility] ABS. NEUTROPHILS TOTAL 5.35 1.80 - 7.70 x10'3/uL 09/03/2022 12:30 PM CDT [facility] ABS. LYMPHOCYTES 1.76 1.00 - 4.80 x10'3/uL 09/03/2022 12:30 PM CDT [facility] ABS. MONOCYTES 0.97(H) 0.30 - 0.82 x10'3/uL 09/03/2022 12:30 PM CDT [facility] ABS. EOSINOPHILS 0.07 0.04 - 0.54 x10'3/uL 09/03/2022 12:30 PM CDT [facility] ABS. BASOPHILS 0.09(H) 0.01 - 0.08 x10'3/uL 09/03/2022 12:30 PM CDT [facility] ABS. IMMATURE GRANULOCYTES 0.02 0.00 - 0.49 x10'3/uL 09/03/2022 12:30 PM CDT [facility] 09/03/2022 12:1 0 PM CDT us Osmin Disla MD LABORATORY Final Result [facility] [address] [place] [address], documented in this encounter Visit Diagnoses Diagnosis PVD (peripheral vascular disease)- Primary Peripheral vascular disease, unspecified documented in this encounter Care Teams Event Crew Technician Relationship Specialty Start Date End Date Nilsa Lemus MD [address] [place], [place] [id number] PCP - General FAMILY PRACTICE 01/27/22 Osmin Disla MD Three [facility]. [facility] [address] [place] [address] Referring Physician VASCULAR SURGERY 01/27/22 documented as of this encounter
--- OUTSIDE RECORDS SUMMARY | 2025-03-26 18:01 | XMS_ITS | Encounter Summary ---
Author Organization [facility] Address [facility] [place] [address] Care Team Providers Care Homicide Investigator Name Role Phone Nilsa Lemus MD Primary Care Provider [phone] Osmin Disla MD Unavailable Encounter Details Date Type Department Care Team (Late st Contact Info) Description 09/26/2022 Ismole Message Enc [facility] [address] [facility], [facility] [address] [place] [address] Osmin Disla MD [facility]. [facility] [address] [place] [address] Swelling Social History Tobacco Use [...] place to sleep or slept in a alf (including now)? No 09/17/2022 Sex and Gender [...] on filedocumented in this encounter Care Teams Homicide Investigator Relationship Specialty Start Date End Date Nilsa Lemus MD [address] [place] [id number] PCP - General FAMILY PRACTICE 01/27/22 Osmin Disla MD [address] [address] Referring Physician VASCULAR SURGERY 01/27/22 documented as of this encounter
--- OUTSIDE RECORDS SUMMARY | 2025-03-26 18:01 | XMS_ITS | Encounter Summary ---
Author Organization [facility] Address [facility] [place] [address] Care Team Providers Care Grain Trader Name Role Phone Nilsa Lemus MD Primary Care Provider [phone] Osmin Disla MD Unavailable Encounter Details Date Type Department Care Team (Late st Contact Info) Description 03/09/2022 Prep for Procedure [facility] THREE [facility], [facility] [address] [place] [address] Osmin Disla MD Three [facility]. [facility] [address] [place] [address] Social History Tobacco Use Types [...] Coronavirus/COVID-19? No / Unsure 03/08/2022 7:45 AM CLERICAL ADVISER documented as of this encounter Plan of Treatment Not on file documented as of this encounter Visit Diagnoses Not on filedocumented in this encounter Care Teams Grain Trader Relationship Specialty Start Date End Date Nilsa Lemus MD [address] [place] [address] PCP - General FAMILY PRACTICE 01/27/22 Osmin Disla MD [id number] [place] [address] Referring Physician VASCULAR SURGERY 01/27/22 documented as of this encounter
--- OUTSIDE RECORDS SUMMARY | 2025-03-26 18:01 | XMS_ITS | Clinical Summary ---
Author Organization [facility] [address] Address [address] [place] [address] Care Team Providers Care Account Classification Clerk Name Role Phone Nilsa Lemus MD Primary Care Provider [phone] Allergies Active Allergy Reactions Criticality Noted Date Comments Iodinated Contrast Media Nausea only High 08/04/24- Pt states reaction is nausea not SOB Iodine Iodine And Iodide Containing Products Penicillins Rash Medium Medications aspirin (ASPIR-LOW) 81 mg tablet take 1 Tablet by oral route every day 0 0 6 Active omeprazole (PriLOSEC) 20 mg capsule take 1 capsule by oral route every day before a meal 0 0 6 Active nitroglycerin (NITROSTAT) 0.[address] 1 tablet (0.4 mg total) under the tongue every 5 (five) minutes as needed for chest pain 100 tablet 5 Active NIFEdipine (NIFEdipine CC) 60 mg 24 hr tablet TAKE 1 TABLET(60 MG) BY MOUTH DAILY 90 tablet 2 5 Active atorvastatin (LIPITOR) 40 mg tablet TAKE 1 TABLET BY MOUTH EVERY DAY 90 tablet 3 5 Active metoprolol tartrate (LOPRESSOR) 50 mg immediate release tablet TAKE 1 TABLET(50 MG) BY MOUTH TWICE DAILY 180 tablet 1 5 Active clopidogreL (PLAVIX) 75 mg tablet TAKE 1 TABLET(75 MG) BY MOUTH DAILY 90 tablet 1 5 Active isosorbide mononitrate ER (IMDUR) 60 mg 24 hr tablet TAKE 2 TABLETS BY MOUTH EVERY DAY 60 tablet 11 5 Active Xarelto 2.5 mg tablet TAKE 1 TABLET(2.5 MG) BY MOUTH DAILY 90 tablet 1 5 Active isosorbide mononitrate ER (IMDUR) 60 mg 24 hr tablet TAKE 2 TABLETS BY MOUTH EVERY DAY 60 tablet 11 4 025 Discontinued rivaroxaban (Xarelto) 2.5 mg tablet TAKE 1 TABLET(2.5 MG) BY MOUTH DAILY 90 tablet 1 5 025 Discontinued Active Problems Problem Noted Date Diagnosed Date [...] Encounters Date Type Department Care Team Description 02/11/2025 8:15 AM CDT Office Visit [facility] [address] [place] [address] Saleem Maldonado MD Presence of stent in coronary artery (Primary Dx); S/P CABG (coronary artery bypass graft) from Last 3 Months Surgical History Surgery Date Site/Laterality Comments ANGIOPLASTY 2014, 2015 KNEE ARTHROSCOPY W/ LATERAL RELEASE 04/29/1983 - 04/28/1984 CORONARY ARTERY BYPASS GRAFT 04/29/2014 - 04/28/2015 HERNIA REPAIR 04/29/1967 - 04/28/1968 ABDOMINAL SURGERY 2014 left femoral ar phu bypass Medical History Medical History Date Comments GERD (gastroesophageal reflux disease) 2014 Arthritis 2014 Heart disease 2014 Hypertension 1994 [...] on file Legal Sex Male 9:20 PM [employer] Gender Identity Male 01/04/2021 7:50 PM CDT Sexual Orientation Straight 01/04/2021 7: 50 PM CDT Last Filed Vital Signs Vital Sign Reading Time Taken Comments Blood Pressure 128/82 02/11/2025 8:08 AM CDT Pulse 84 02/11/2025 8:08 AM CDT Temperature - - Respiratory Rate 12 11/13/2016 8:59 AM CDT Oxygen Saturation 96% 02/11/2025 8:08 AM CDT Inhaled Oxygen Concentration - - Weight 94.7 kg (208 lb 12.8 oz) 02/11/2025 8:08 AM CDT Height 172.7 cm (5' 8) 02/11/2025 8:08 AM CDT Body Mass Index 31.75 02/11/2025 8:08 AM CDT Plan of Treatment Health Maintenance Due Date Last Done Comments Colon Cancer Screening-Colonoscopy 1961 Depression Screening 1961 Hepatitis C Screening 1961 Prostate Cancer Screening-PSA 1961 DTaP/Tdap/Td Vaccine (1 - Tdap) 02/07/1972 Hepatitis B Screening 1979 Regular Well Visit/Exam 18-64 1979 Pneumococcal vaccine <65 (1 of 2 - PCV) 02/07/1980 Lung Cancer Screening 2011 Zoster Vaccine (1 of 2) 2011 Influenza Vaccine (#1) 2024 2, 01/12/2020, 01/24/2019, Additional history exists Insurance Care Teams Account Classification Clerk Relationship Specialty Start Date End Date Nilsa Lemus MD PCP - General Family Medicine 01/05/21
--- OUTSIDE RECORDS SUMMARY | 2025-03-26 18:01 | XMS_ITS | Encounter Summary ---
Author Organization [facility] Address [facility] [place] [address] Care Team Providers Care Fireproof Door Maker Name Role Phone Nilsa Lemus MD Primary Care Provider [phone] Osmin Disla MD Unavailable Encounter Details Date Type Department Care Team (Late st Contact Info) Description 10/18/2023 Prep for Procedure [facility] THREE [facility], [facility] [address] [place] [address] Osmin Disla MD Three [facility]. [facility] [address] [place] [address] Social History Tobacco Use Types [...] place to sleep or slept in a assisted (including now)? No 09/17/2022 Sex and Gender [...] on filedocumented in this encounter Care Teams Fireproof Door Maker Relationship Specialty Start Date End Date Nilsa Lemus MD [address] [place] [address] PCP - General FAMILY PRACTICE 01/27/22 Osmin Disla MD [address] [address] Referring Physician VASCULAR SURGERY 01/27/22 documented as of this encounter
--- NOTE | 2025-03-26 18:06 | ECG_ITS ---
Test Date: 2025-03-26 18:08:02 Measurements Intervals [place] Rate: 112 P: 50 UT: 167 QRS: 5 QRSD: 89 T: 62 QT: 308 QTc: 421 Interpretive Statements SINUS TACHYCARDIA POSSIBLE LEFT ATRIAL ENLARGEMENT [-0.1mV P-WAVE IN V1/V2] NONSPECIFIC ST & T-WAVE ABNORMALITY ABNORMAL RHYTHM ECG No previous ECG available for comparison Electronically Signed On 03-27-2025 08:05:03 DIETETIC TECH by Saleem Maldonado M.D.
--- NOTE | 2025-03-26 18:18 | ED_ITS ---
HPI - Chest Pain General Chief Complaint: Chest Pain <Flora Crabtree FORM SETTER HELPER - Last Filed: 03/26/25 18:20> Stated Complaint: chest pressure x 1. hx CABG <Flora Crabtree FORM SETTER HELPER - Last Filed: 03/26/25 18:20> Time Seen by Provider: 03/26/25 18:18 <Flora Crabtree FORM SETTER HELPER - Last Filed: 03/26/25 18:20> Focused HPI: Patient is a 65-year-old male who presents to the ER with chest pressure that started around 5:20 p.m. this afternoon. He reports he has had intermittent chest pain for the past week but it progressively got worse. Patient denies any shortness of breath, recent fevers, congestion, wheezing, or cough. He endorses a history of a CABG, PAD, balloon stent, NSTEMI, and cigarette smoking. Patient reports his heart rate reached 136 when he was at home today and he reports he has never seen before. He denies any history of atrial fibrillation. GENERAL: Well-appearing, well-nourished, and in no acute distress. HEAD: Normocephalic, atraumatic. CHEST: Clear to auscultation. ?No respiratory distress. HEART: Tachycardia. NEURO: ?Alert and oriented x3. Patient screened in triage and initial orders placed.? ?Additional care and disposition to be based upon?diagnostic testing and treatment. <Flora Crabtree, FORM SETTER HELPER - Last Filed: 03/26/25 18:20> Focused HPI: Patient is a 65-year-old male who presents to the ER with chest pressure that started around 5:20 p.m. this afternoon. He reports he has had intermittent chest pain for the past week but it progressively got worse. Patient denies any shortness of breath, recent fevers, congestion, wheezing, or cough. He endorses a history of a CABG, PAD, balloon stent, NSTEMI, and cigarette smoking. Patient reports his heart rate reached 136 when he was at home today after taking some nitroglycerin that relieved his symptoms. States that he has also been cutting back on his fluid intake after talking to his primary care provider in feels slightly dehydrated. He denies any history of atrial fibrillation. No fever, chills. No shortness of breath. Symptoms resolved upon arrival to the emergency department he has no complaints at this time. Sees a esthetician/spa coordinator every 6 months most recent in January. No changes to his regimen otherwise. On his stable antiplatelet anticoagulants. Takes Imdur and nitro for symptoms when he gets these chest pressure episodes. Rates it a mild chest pressure that resolved. No other associated symptoms. No exertional component. GENERAL: Well-appearing, well-nourished, and in no acute distress. HEAD: Normocephalic, atraumatic. CHEST: Clear to auscultation. ?No respiratory distress. HEART: Tachycardia. NEURO: ?Alert and oriented x3. Patient screened in triage and initial orders placed.? ?Additional care and disposition to be based upon?diagnostic testing and treatment. <Feroz Mojica MD - Last Filed: 03/27/25 00:07> History of Present Illness HPI narrative: Agree with the HPI above <Feroz Mojica MD - Last Filed: 03/27/25 00:07> Related Data Home Medications: Home Medications ?Medication ?Instructions ?Recorded ?Confirmed ?Last Taken ?Type aspirin 81 mg tablet,delayed 81 mg PO DAILY 12/03/19 0 01/21/25 Unknown History release (Aspir-) atorvastatin 40 mg tablet 40 mg PO DAILY 12/03/1912/29 Unknown History isosorbide mononitrate 60 mg 60 mg PO BID 12/03/19 Unknown History tablet,extended release 24 hr metoprolol tartrate 50 mg tablet 50 mg PO BID 12/03/19 01/21/25 Unknown History nifedipine 60 mg tablet,extended 60 mg PO DAILY 01/21/25 Unknown History release nitroglycerin 0.4 mg sublingual 0.4 mg sublingual Q5M PRN 12/03/19 01/21/25 Unknown History tablet rivaroxaban 2.5 mg tablet (Xarelto) 2.5 mg PO DAILY 01/21/25 Unknown History clopidogrel 75 mg tablet 75 mg PO DAILY 12/15/1912/29 Unknown History omeprazole magnesium 20 mg 20 mg PO DAILY 03/29/21 Unknown History capsule,delayed release (Acid Heating And Cooling Systems Engineer (omeprazole)) <Flora Crabtree, FORM SETTER HELPER - Last Filed: 03/26/25 18:20> Allergies/Adverse Reactions: Allergies Allergy/AdvReac Type Severity Reaction Status Date / Time iodine Allergy Unknown Nausea Verified 03/26/25 18:09 Penicillins Allergy Unknown Rash Verified 03/26/25 18:09 <Flora Crabtree APRN - Last Filed: 03/26/25 18:20> Review of Systems 2 Review of Systems: As reviewed above in HPI <Feroz Mojica MD - Last Filed: 03/27/25 00:07> All systems reviewed & are unremarkable except as noted in HPI and below < Feroz Mojica MD - Last Filed: 03/27/25 00:07> [facility] Past Medical History Medical History: Medical History BMI 27.0-27.9,adult Colon cancer screening Coronary artery disease Primary hypertension group home (current) use of antithrombotics/antiplatelets Prostate cancer screening Peripheral artery disease Anticoagulant long-term use History of peripheral arterial disease Claudication of right lower extremity Atherosclerotic heart disease History of coronary angiogram (~07/14/15) Hyperlipidemia Hypertension <Flora Crabtree APRN - Last Filed: 03/26/25 18:20> Surgical History Surgical History: Surgical History History of two vessel coronary artery bypass graft Hx of CABG (~03/2015) <Flora Crabtree APRN - Last Filed: 03/26/25 18:20> Family History Family History: Family History Mother Hypertension Family history of lung cancer Family history of malignant neoplasm of breast in first degree relative Father Family history of lymphoma <Flora Crabtree APRN - Last Filed: 03/26/25 18:20> Social History Social History: Social History Smoking status: Former smoker Second hand tobacco smoke exposure: No Smoking end date: 04/29/13 Alcohol intake: current Alcohol use details: consumes 4 vodka drinks daily Substance use: never Substance use type: does not use Gender identity (if verbalized by the patient): Male <Flora Crabtree APRN - Last Filed: 03/26/25 18:20> Exam 2 Narrative: GENERAL: [Well-appearing, well-nourished, and in no acute distress.] HEAD: [Normocephalic, atraumatic.] EYES: [PERRLA and EOMI.] ENT: Nares clear, no rhinorrhea or epistaxis. Mucous membranes moist. NECK: Supple. CHEST: Clear to auscultation, no respiratory distress or tachypnea. No wheezing or decreased air entry. Sternotomy scar present HEART: Strong symmetric pulses with a regular rate and rhythm. ABDOMEN: [Soft, nondistended], [nontender], [No rigidity or guarding] EXTREMITIES: Normal range of motion. [No edema.] SKIN: Warm, dry, no rash. NEURO: [No focal deficits]. Alert and oriented [x3.] PSYCH: [Normal mood and affect.] <Feroz Mojica MD - Last Filed: 03/27/25 00:07> Course Vital Signs Vital signs: Vital Signs Temperature 36.6 C 03/26/25 18:06 Pulse Rate 107 H 03/26/25 18:06 Respiratory Rate 18 03/26/25 18:06 Blood Pressure 158/99 H 03/26/25 18:06 Pulse Oximetry 99 03/26/25 18:06 Oxygen Delivery Room Air 03/26/25 18:06 Temperature 37.1 C 03/26/25 19:26 Pulse Rate 85 03/26/25 22:01 Respiratory Rate 17 03/26/25 22:01 Blood Pressure 144/98 H 03/26/25 22:01 Pulse Oximetry 95 03/26/25 22:01 Oxygen Delivery Room Air 03/26/25 18:06 <Flora Crabtree APRN - Last Filed: 03/26/25 18:20> Vital Signs Temperature 36.6 C 03/26/25 18:06 Pulse Rate 107 H 03/26/25 18:06 Respiratory Rate 18 03/26/25 18:06 Blood Pressure 158/99 H 03/26/25 18:06 Pulse Oximetry 99 03/26/25 18:06 Oxygen Delivery Room Air 03/26/25 18:06 Temperature 37.1 C 03/26/25 19:26 Pulse Rate 85 03/26/25 22:01 Respiratory Rate 17 03/26/25 22:01 Blood Pressure 144/98 H 03/26/25 22:01 Pulse Oximetry 95 03/26/25 22:01 Oxygen Delivery Room Air 03/26/25 18:06 <Feroz Mojica MD - Last Filed: 03/27/25 00:07> MDM - Chest Pain MDM Narrative Medical decision making narrative: 65-year-old male who presents to the ER with chest pressure that started around 5:20 p.m. this afternoon. He reports he has had intermittent chest pain for the past week but it progressively got worse. Patient denies any shortness of breath, recent fevers, congestion, wheezing, or cough. He endorses a history of a CABG, PAD, balloon stent, NSTEMI, and cigarette smoking. Patient reports his heart rate reached 136 when he was at home today after taking some nitroglycerin that relieved his symptoms. States that he has also been cutting back on his fluid intake after talking to his primary care provider in feels slightly dehydrated. He denies any history of atrial fibrillation. No fever, chills. No shortness of breath. Symptoms resolved upon arrival to the emergency department he has no complaints at this time. Sees a esthetician/spa coordinator every 6 months most recent in January. No changes to his regimen otherwise. On his stable antiplatelet anticoagulants. Takes Imdur and nitro for symptoms when he gets these chest pressure episodes. Rates it a mild chest pressure that resolved. No other associated symptoms. No exertional component. Patient has a benign physical examination, no symptoms at this time. Blood pressure 135/90, heart rate 81. No tachypnea, fever, hypoxemia. Strong symmetric pulses with regular rhythm. EKG nonischemic with regular rate. Patient has intermittent symptoms of his chest pressure that he takes nitroglycerin for home and no continuous or persistent symptoms. Possible component of some dehydration. Low suspicion ACS or acute cardiac/thromboembolic process. Low suspicion pneumonia or atelectasis. Serial troponins, EKG, chest x-ray and basic labs obtained. Patient placed on groover and striper operator. Presently asymptomatic. Lab show no significant leukocytosis or anemia. Normal platelet count. Normal creatinine. Potassium normal. Glucose unremarkable. Troponin negative, delta troponin negative, LFTs normal. Lipase normal. Repeat EKG unremarkable. Remains symptom free. Safe for discharge home at this time. Encouraged to call his esthetician/spa coordinator for close outpatient follow-up and further risk stratification as well as strict return precautions were discussed. <Feroz Mojica MD - Last Filed: 03/27/25 00:07> Medical Records Data Attestation: I reviewed the patient's medical records. <Feroz Mojica MD - Last Filed: 03/27/25 00:07> Lab Data Attestation: I reviewed the patient's lab results. <Feroz Mojica MD - Last Filed: 03/27/25 00:07> Result diagrams: 03/26/25 18:17 03/26/25 18:17 <Flora Crabtree APRN - Last Filed: 03/26/25 18:20> Labs: Lab Results 03/26/25 03/26/25 Range/Units 18:17 21:35 WBC 10.3 H (4.5-10.0) K/mm3 RBC 4.50 L (4.6-6.20) M/mm3 Hgb 15.4 (14.0-18.0) g/dL Hct 43.3 (42.0-52.0) % MCV 96.2 (80-100) fl MCH 34.2 H (26-34) pg MCHC 35.6 (32-36) g/dl RDW 12.7 (11.5-14.5) % Plt Count 294 (150-375) k/mm3 MPV 9.4 (7.4-10.4) fl Immature Gran % (Auto) 0.3 (0-0.5) % Neut % (Auto) 63.8 (45.5-73.1) % Lymph % (Auto) 19.2 (18.3-44.2) % Gaston % (Auto) 14.8 H (2.6-8.5) % Eos % (Auto) 0.9 (0-4.4) % Baso % (Auto) 1.0 (0.2-1.2) % Lymph # (Auto) 1.98 (0.9-3.2) K/mm3 Gaston # (Auto) 1.5 H (0.1-0.6) K/mm3 Eos # (Auto) 0.1 (0-0.3) K/mm3 Baso # (Auto) 0.1 (0.0-0.1) K/mm3 Abs Immat Gran (auto) 0.03 (0.00-0.031) K/mm3 Absolute Neuts (auto) 6.6 (1.3-6.7) K/mm3 Absolute Nucleated RBC 0.000 (0.0-0.012) K/mm3 Nucleated RBC % 0.0 (0.0-0.2) % PT 13.5 (11.1-14.7) Seconds INR 1.0 APTT 28.3 (22.3-36.8) Seconds Sodium 132 L (137-145) mmol/L Potassium 3.5 (3.4-5.0) mmol/L Chloride 98 (98-107) mmol/L Carbon Dioxide 19 L (22-30) mmol/L Anion Gap 15 H (4-12) mmol/L BUN 18 (9-20) mg/dL Creatinine 1.17 (0.7-1.3) mg/dL Estim Creat Clear Calc 62 ml/min Estimated GFR > 60 (59 - ) Glucose 149 H (65-110) mg/dL Calcium 10.0 (8.4-10.2) mg/dL Total Bilirubin 0.8 (0.2-1.3) mg/dL AST 40 (17-59) U/L ALT 47 (6-50) U/L Alkaline Phosphatase 74 (38-126) U/L Troponin I < 0.012 < 0.012 (0.000-0.034) ng/mL Total Protein 8.7 H (6.3-8.2) g/dL Albumin 4.9 (3.5-5.1) g/dL Lipase 115 (23-300) U/L <Flora Crabtree, FORM SETTER HELPER - Last Filed: 03/26/25 18:20> Lab Results 03/26/25 03/26/25 Range/Units 18:17 21:35 WBC 10.3 H (4.5-10.0) K/mm3 RBC 4.50 L (4.6-6.20) M/mm3 Hgb 15.4 (14.0-18.0) g/dL Hct 43.3 (42.0-52.0) % MCV 96.2 (80-100) fl MCH 34.2 H (26-34) pg MCHC 35.6 (32-36) g/dl RDW 12.7 (11.5-14.5) % Plt Count 294 (150-375) k/mm3 MPV 9.4 (7.4-10.4) fl Immature Gran % (Auto) 0.3 (0-0.5) % Neut % (Auto) 63.8 (45.5-73.1) % Lymph % (Auto) 19.2 (18.3-44.2) % Gaston % (Auto) 14.8 H (2.6-8.5) % Eos % (Auto) 0.9 (0-4.4) % Baso % (Auto) 1.0 (0.2-1.2) % Lymph # (Auto) 1.98 (0.9-3.2) K/mm3 Gaston # (Auto) 1.5 H (0.1-0.6) K/mm3 Eos # (Auto) 0.1 (0-0.3) K/mm3 Baso # (Auto) 0.1 (0.0-0.1) K/mm3 Abs Immat Gran (auto) 0.03 (0.00-0.031) K/mm3 Absolute Neuts (auto) 6.6 (1.3-6.7) K/mm3 Absolute Nucleated RBC 0.000 (0.0-0.012) K/mm3 Nucleated RBC % 0.0 (0.0-0.2) % PT 13.5 (11.1-14.7) Seconds INR 1.0 APTT 28.3 (22.3-36.8) Seconds Sodium 132 L (137-145) mmol/L Potassium 3.5 (3.4-5.0) mmol/L Chloride 98 (98-107) mmol/L Carbon Dioxide 19 L (22-30) mmol/L Anion Gap 15 H (4-12) mmol/L BUN 18 (9-20) mg/dL Creatinine 1.17 (0.7-1.3) mg/dL Estim Creat Clear Calc 62 ml/min Estimated GFR > 60 (59 - ) Glucose 149 H (65-110) mg/dL Calcium 10.0 (8.4-10.2) mg/dL Total Bilirubin 0.8 (0.2-1.3) mg/dL AST 40 (17-59) U/L ALT 47 (6-50) U/L Alkaline Phosphatase 74 (38-126) U/L Troponin I < 0.012 < 0.012 (0.000-0.034) ng/mL Total Protein 8.7 H (6.3-8.2) g/dL Albumin 4.9 (3.5-5.1) g/dL Lipase 115 (23-300) U/L <Feroz Mojica MD - Last Filed: 03/27/25 00:07> Imaging Data Attestation: I personally reviewed and interpreted this imaging study as follows: < Feroz Mojica MD - Last Filed: 03/27/25 00:07> My impression: Impressions Chest X-Ray 03/26/25 18:42 IMPRESSION: 1. No acute pulmonary findings. Postsurgical changes of the heart and significant atherosclerotic aorta. <Feroz Mojica MD - Last Filed: 03/27/25 00:07> Discharge Plan Discharge Clinical Impression: Chest pain, atypical <Flora Crabtree APRN - Last Filed: 03/26/25 18:20> Patient Disposition: Home <Flora Crabtree APRN - Last Filed: 03/26/25 18:20> Condition: Stable <Flora Crabtree APRN - Last Filed: 03/26/25 18:20> Instructions: Antibiotic Form, Chest Pain (ED) <Flora Crabtree APRN - Last Filed: 03/26/25 18:20> Additional Instructions: Cardiac labs are normal, no signs of active cardiac damage. Chest x-ray unremarkable. EKG reassuring. Possibility of some slight dehydration causing the symptoms as well as taking nitroglycerin at home. Follow-up with your esthetician/spa coordinator. Return with any recurrent, persistent or new concerns. Follow-up with your esthetician/spa coordinator and primary doctor otherwise. <Flora Crabtree APRN - Last Filed: 03/26/25 18:20> Patient Language: Burmese <Flora Crabtree APRN - Last Filed: 03/26/25 18:20> Prescriptions: No Action clopidogrel 75 mg tablet 75 mg PO DAILY aspirin [Aspir-81] 81 mg tablet,delayed release (DR/EC) 81 mg PO DAILY atorvastatin 40 mg tablet 40 mg PO DAILY isosorbide mononitrate 60 mg tablet extended release 24 hr 60 mg PO BID metoprolol tartrate 50 mg tablet 50 mg PO BID nifedipine 60 mg tablet extended release 60 mg PO DAILY nitroglycerin 0.4 mg tablet, sublingual 0.4 mg SUBLINGUAL Q5M PRN Rx Instructions: do not exceed 3 doses per episode Xarelto 2.5 mg tablet 2.5 mg PO DAILY omeprazole magnesium [Acid Heating And Cooling Systems Engineer (omeprazole)] 20 mg capsule,delayed release(DR/EC) 20 mg PO DAILY <Flora Crabtree APRN - Last Filed: 03/26/25 18:20> Follow-up/Referrals: Bird,MD Nilsa [Physician, Family Practice] <Flora Crabtree APRN - Last Filed: 03/26/25 18:20> Time of Disposition: 22:09 <Flora Crabtree APRN - Last Filed: 03/26/25 18:20> 22:09 <Feroz Mojica MD - Last Filed: 03/27/25 00:07>
[2025-03-26 18:25] LABS: Hematocrit 43.3 % (42.0-52.0); Hemoglobin 15.4 g/dL (14.0-18.0); Immature Granulocyte Percent A 0.3 % (0-0.5); Lymphocytes Absolute Auto 1.98 K/mm3 (0.9-3.2); Mean Corpuscular HGB Conc 35.6 g/dl (32-36); Mean Corpuscular Hemoglobin 34.2 pg (26-34); Mean Corpuscular Volume 96.2 fl (80-100); Nucleated Red Blood Cells Absolute Auto 0.000 K/mm3 (0.0-0.012); Nucleated Red Blood Cells Perc 0.0 % (0.0-0.2); Platelet Count Result 294 k/mm3 (150-375); Red Blood Count 4.50 M/mm3 (4.6-6.20); White Blood Count 10.3 K/mm3 (4.5-10.0)
[2025-03-26 18:36] LABS: INR 1.0; Prothrombin Time 13.5 Seconds (11.1-14.7)
[2025-03-26 18:37] LABS: Partial Thromboplastin Time 28.3 Seconds (22.3-36.8)
[2025-03-26 18:43] LABS: Alanine Aminotransferase 47 U/L (6-50); Albumin Level 4.9 g/dL (3.5-5.1); Alkaline Phosphatase 74 U/L (38-126); Anion Gap 15 mmol/L (4-12); Aspartate Amino Transferase 40 U/L (17-59); Bilirubin,Total 0.8 mg/dL (0.2-1.3); Blood Urea Nitrogen 18 mg/dL (9-20); Calcium 10.0 mg/dL (8.4-10.2); Carbon Dioxide 19 mmol/L (22-30); Chloride 98 mmol/L (98-107); Estimated CRCL calculation 62 ml/min; Estimated Glomerular Filt Rate > 60; Glucose 149 mg/dL (65-110); Lipase 115 U/L (23-300); Potassium 3.5 mmol/L (3.4-5.0); Sodium 132 mmol/L (137-145); Total Protein 8.7 g/dL (6.3-8.2)
[2025-03-26 18:50] LABS: Troponin I < 0.012 ng/mL (0.000-0.034)
--- OUTSIDE RECORDS SUMMARY | 2025-03-26 19:51 | XMS_ITS | Encounter Summary ---
Author Organization [facility] Address [facility] [place] [address] Care Team Providers Care Beauty Culture Teacher Name Role Phone Nilsa Lemus MD Primary Care Provider [phone] Osmin Disla MD Unavailable Encounter Details Date Type Department Care Team (Late st Contact Info) Description 10/18/2023 Prep for Procedure [facility], [facility] [address] [place] [address] Osmin Disla MD Three [facility]. [facility] [address] [place] [address] Social History Tobacco Use Types [...] place to sleep or slept in a group home (including now)? No 09/17/2022 Sex and Gender [...] on filedocumented in this encounter Care Teams Beauty Culture Teacher Relationship Specialty Start Date End Date Nilsa Lemus MD [address] [place] [address] PCP - General FAMILY PRACTICE 01/27/22 Osmin Disla MD [address] [address] Referring Physician VASCULAR SURGERY 01/27/22 documented as of this encounter
--- OUTSIDE RECORDS SUMMARY | 2025-03-26 19:51 | XMS_ITS | Encounter Summary ---
Author Organization [facility] Address [facility] [place] [address] Care Team Providers Care Chips Screen Tender Name Role Phone Nilsa Lemus MD Primary Care Provider [phone] Osmin Disla MD Unavailable Encounter Details Date Type Department Care Team (Late st Contact Info) Description 03/09/2022 Prep for Procedure [facility] THREE [facility], [facility] [address] [place] [address] Osmin Disla MD Three [facility]. [facility] [address] [place] [address] Social History Tobacco Use Types [...] Coronavirus/COVID-19? No / Unsure 03/08/2022 7:45 AM CIVIL TECHNICIAN documented as of this encounter Plan of Treatment Not on file documented as of this encounter Visit Diagnoses Not on filedocumented in this encounter Care Teams Chips Screen Tender Relationship Specialty Start Date End Date Nilsa Lemus MD [address] [place] [address] PCP - General FAMILY PRACTICE 01/27/22 Osmin Disla MD [id number] [place] [address] Referring Physician VASCULAR SURGERY 01/27/22 documented as of this encounter
--- OUTSIDE RECORDS SUMMARY | 2025-03-26 19:51 | XMS_ITS | Clinical Summary ---
Author Organization [facility] Address [address] [place] [address] Care Team Providers Care Banking Teacher Name Role Phone Nilsa Lemus MD Primary Care Provider [phone] Osmin Disla MD Unavailable Allergies Active Allergy [...] (08/22/2022): Added automatically from request for surgery [id number] Infected tooth 03/03/2022 Coronary bypass graft mechanical [...] Magaña RN Medical Devices Implanted Type Area Coordinator Cardiopulmonary Services Device Identifier Shelf Expiration Date Model / Serial / Lot Graft Vasc 80cm 6mm Thnwl Gortx Remvbl Ring; [address] - [id number] Implanted:Qty : 1 on 09/17/2022 by Osmin Disla MD at [facility] Graft Right: Arterial [employer] [id number] 03/12/2027 [id number] / [id number] / Description:Right femoral ar phu bypass Insurance [facility] Advance Directives * Full Code (Latest Code Status on File) Date Activated Date Inactivated Comments 09/18/2022 12:01 AM 09/20/2022 8:42 PM Care Teams Banking Teacher Relationship Specialty Start Date End Date Nilsa Lemus MD [address] [place] [address] PCP - General FAMILY PRACTICE 01/27/22 Osmin Disla MD [facility]. [address] [address] Referring Physician VASCULAR SURGERY 01/27/22
--- OUTSIDE RECORDS SUMMARY | 2025-03-26 19:51 | XMS_ITS | Clinical Summary ---
Author Organization [facility] [address] Address [address] [place] [address] Care Team Providers Care Nuclear Medicine Physician Name Role Phone Nilsa Lemus MD Primary Care Provider [phone] Allergies Active Allergy Reactions Criticality Noted Date [...] Description 02/11/2025 8:15 AM CDT Office Visit [facility] Cardiology [address] [place] [address] Saleem Maldonado MD Presence of stent in [...] breast ; Cancer Mother Vidhi Hypertension Mother Vdihi Lung cancer Mother Vidhi Cancer, lung; Relation [...] on file Legal 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
--- OUTSIDE RECORDS SUMMARY | 2025-03-26 19:51 | XMS_ITS | Encounter Summary ---
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 [facility] [address] [place] [address] Phone: tel: fax: Referral ID Status Reason Start Date Expiration Date Visits Re quested Visits Authorized [id number] Closed 08/22/2022 08/23/2023 1 1 Encounter Details Date Type Department Care Team (Late st Contact Info) Description 08/22/2022 Prep for Procedure [facility] [place] [place] [address] [place] [address] Osmin Disla MD [facility]. [facility] [address] [place] [address] Social History Tobacco Use Types [...] SPEC DESCRIPTION NASAL 09/03/2022 12:14 PM CDT [facility] SPECIAL REQUESTS NO SPECIAL REQUEST 09/03/2022 12:14 PM CDT [facility] CULTURE RESULT NO METHICILLIN RESISTANT STAPHYLOCOCCUS AUREUS ISOLATED 09/04/2022 11:06 AM CDT [facility] SPECIMEN FROM INTERNAL NOSE / Unknown 09/03/2022 12:13 PM CDT 09/03/2022 12:24 PM CDT Osmin Disla MD MICROBIOLOGY - GENERAL ORDERABLE S Final Result [facility] [address] [place] [address], [place] [phone] * (ABNORMAL) COMPREHENSIVE METABOLIC PANEL (09/03/2022 12:10 PM CDT) GLUCOSE 115(H) 70 - 99 MG/DL 09/03/2022 12:53 PM CDT [facility] BUN 15 7 - 18 MG/DL 09/03/2022 12:53 PM CDT [facility] CREATININE S/P/B 1.01 0.7 - 1.3 MG/DL 09/03/2022 12:53 PM CDT [facility] SODIUM S/P/B 134(L) 136 - 145 MMOL/L 09/03/2022 12:53 PM CDT [facility] POTASSIUM S/P/B 3.7 3.5 - 5.1 MMOL/L 09/03/2022 12:53 PM CDT [facility] CHLORIDE S/P/B 104 100 - 108 MMOL/L 09/03/2022 12:53 PM CDT [facility] CO2 24.0 21 - 32 MMOL/L 09/03/2022 12:53 PM CDT [facility] CALCIUM S/P/B 9.9 8.5 - 10.1 MG/DL 09/03/2022 12:53 PM CDT [facility] BILIRUBIN TOTAL S/P/B 0.9 0.2 - 1.2 MG/DL 09/03/2022 12:53 PM CDT [facility] Comment: THIS ASSAY IS NOT RECOMMENDED FOR PATIENTS UNDERGOING TREATMENT WITH ELTROMBOPAG DUE TO THE POTENTIAL FOR FALSELY ELEVATED RESULTS. TOTAL PROTEIN S/P/B 7.8 6.4 - 8.2 G/DL 09/03/2022 12:53 PM T [facility] ALBUMIN S/P/B 3.9 3.4 - 5.0 G/DL 09/03/2022 12:53 PM CDT [facility] AST 17 15 - 37 U/L 09/03/2022 12:53 PM CDT [facility] ALT 22 16 - 60 U/L 09/03/2022 12:53 PM CDT [facility] ALKALINE PHOSPHATASE S/P/B 85 50 - 136 U/L 09/03/2022 12:53 PM CDT [facility] ANION GAP 6.0 5 - 15 MMOL/L 09/03/2022 12:53 PM CDT [facility] BUN CREATININE RATIO 14.9 6 - 26 09/03/2022 12:53 PM CDT [facility] A/G RATIO 1.0 1.0 - 2.0 RATIO 09/03/2022 12:53 PM CDT [facility] GFR ESTIMATE 85(L) >90 ML/MIN/1.7 3 M2 09/03/2022 12:53 PM CDT [facility] Comment: NOTE: eGFR is not [...] MD LABORATORY Final Result Performing Organization Address [facility] Co de Phone Number [facility] [address] [place] [address], [place] [phone] * PROTIME/INR, VENOUS (09/03/2022 12:10 PM CDT) PROTIME 12.0 10.2 - 12.9 SEC 09/03/2022 12:47 PM CDT [facility] INR 1.0 09/03/2022 12:47 PM CDT [facility] Comment: Recommended INR Therapeutic Goals: 2.0-3.0 Routine Therapy 2.5-3.5 Mechanical Prosthetic Valves (High Risk) 09/03/2022 12:1 0 PM CDT [place] Osmin Disla MD LABORATORY Final Result [facility] [address] [place] [address], * (ABNORMAL) CBC W/DIFF AUTOMATED (09/03/2022 12:10 PM CDT) [facility] WBC 8.3 4.5 - 11.0 x10'3/uL 09/03/2022 12:30 PM CDT [facility] RBC 4.02(L) 4.70 - 6.10 x10'6/uL 09/03/2022 12:30 PM CDT [facility] HGB 13.8(L) 14.0 - 18.0 G/DL 09/03/2022 12:30 PM CDT [facility] HCT 38.7(L) 43.0 - 54.0 % 09/03/2022 12:30 PM CDT [facility] MCV 96.3(H) 80.0 - 94.0 FL 09/03/2022 12:30 PM CDT [facility] MCH 34.3(H) 27.0 - 31.0 PG 09/03/2022 12:30 PM CDT [facility] MCHC 35.7 32.0 - 36.0 G/DL 09/03/2022 12:30 PM CDT [facility] RDW 12.5 11.5 - 14.5 % 09/03/2022 12:30 PM CDT [facility] PLT 326 130 - 400 x10'3/uL 09/03/2022 12:30 PM CDT [facility] MPV 8.9(L) 9.3 - 12.2 FL 09/03/2022 12:30 PM CDT [facility] DIFFERENTIAL TYPE AUTOMATED DIFFERENTIAL 09/03/2022 12:30 PM CDT [facility] NEUTROPHILS % 64.9 % 09/03/2022 12:30 PM CDT [facility] LYMPHOCYTES % 21.3 % 09/03/2022 12:30 PM CDT [facility] MONOCYTES % 11.7 % 09/03/2022 12:30 PM CDT [facility] EOSINOPHILS 0.8 % 09/03/2022 12:30 PM CDT [facility] BASOPHILS 1.1 % 09/03/2022 12:30 PM CDT [facility] IMMATURE GRANS % 0.2 % 09/04/19 12:30 PM CDT [facility] ABS. NEUTROPHILS TOTAL 5.35 1.80 - 7.70 x10'3/uL 09/03/2022 12:30 PM CDT [facility] ABS. LYMPHOCYTES 1.76 1.00 - 4.80 x10'3/uL 09/03/2022 12:30 PM CDT [facility] ABS. MONOCYTES 0.97(H) 0.30 - 0.82 x10'3/uL 09/03/2022 12:30 PM CDT [facility] ABS. EOSINOPHILS 0.07 0.04 - 0.54 x10'3/uL 09/03/2022 12:30 PM CDT [facility] ABS. BASOPHILS 0.09(H) 0.01 - 0.08 x10'3/uL 09/03/2022 12:30 PM CDT [facility] ABS. IMMATURE GRANULOCYTES 0.02 0.00 - 0.49 x10'3/uL 09/03/2022 12:30 PM CDT [facility] 09/03/2022 12:1 0 PM CDT us Osmin Disla MD LABORATORY Final Result [facility] [address] [place] [address], documented in this encounter Visit Diagnoses Diagnosis PVD (peripheral vascular disease)- Primary Peripheral vascular disease, unspecified documented in this encounter Care Teams Sales Order Specialist Relationship Specialty Start Date End Date Nilsa Lemus MD [address] [place], [place] [id number] PCP - General FAMILY PRACTICE 01/27/22 Osmin Disla MD Three [facility]. [facility] [address] [place] [address] Referring Physician VASCULAR SURGERY 01/27/22 documented as of this encounter
--- OUTSIDE RECORDS SUMMARY | 2025-03-26 19:51 | XMS_ITS | Encounter Summary ---
Author Organization [facility] Address [facility] [place] [address] Care Team Providers Care Splitting Machine Feeder Name Role Phone Nilsa Lemus MD Primary Care Provider [phone] Osmin Disla MD Unavailable Encounter Details Date Type Department Care Team (Late st Contact Info) Description 09/26/2022 [place] Message Enc [place] [facility] THREE [facility], [facility] [address] [place] [address] Osmin Disla MD [facility]. [facility] [address] [place] [address] Swelling Social History Tobacco Use [...] on filedocumented in this encounter Care Teams Splitting Machine Feeder Relationship Specialty Start Date End Date Nilsa Lemus MD [address] [place] [address] PCP - General FAMILY PRACTICE 01/27/22 Osmin Disla MD [address] [address] Referring Physician VASCULAR SURGERY 01/27/22 documented as of this encounter
--- OUTSIDE RECORDS SUMMARY | 2025-03-26 19:51 | XMS_ITS | Encounter Summary ---
Author Organization [facility] Address [facility] [place] [address] Care Team Providers Care Income Tax Adjuster Name Role Phone Nilsa Lemus MD Primary Care Provider [phone] Osmin Disla MD Unavailable Encounter Details Date Type Department Care Team (Late st Contact Info) Description 07/06/2022 Prep for Procedure [facility] [facility], [facility] [address] [place] [address] Osmin Disla MD Three [facility]. [facility] [address] [place] [address] Social History Tobacco Use Types [...] Coronavirus/COVID-19? 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
--- OUTSIDE RECORDS SUMMARY | 2025-03-26 19:51 | XMS_ITS | Encounter Summary ---
Author Organization [facility] Address [facility] [place] [address] Care Team Providers Care Cad Application Support Specialist Name Role Phone Nilsa Lemus MD Primary Care Provider [phone] Osmin Disla MD Unavailable Encounter Details Date Type Department Care Team (Late st Contact Info) Description 04/27/2022 Prep for Procedure [facility] THREE [facility], [facility] [address] [place] [address] Osmin Disla MD Three [facility]. [facility] [address] [place] [address] Social History Tobacco Use [...] Coronavirus/COVID-19? 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
--- NOTE | 2025-03-26 21:43 | ECG_ITS ---
Test Date: 2025-03-26 22:05:26 Measurements Intervals [place] Rate: 85 P: 70 GA: 163 QRS: 20 QRSD: 87 T: 63 QT: 353 QTc: 421 Interpretive Statements SINUS RHYTHM POSSIBLE LEFT ATRIAL ENLARGEMENT [-0.1mV P-WAVE IN V1/V2] NONSPECIFIC ST & T-WAVE ABNORMALITY ABNORMAL ECG Compared to ECG 03/26/2025 18:08:02 NO SIGNIFICANT CHANGEt Electronically Signed On 03-27-2025 08:09:13 ULTRASONIC CLEANER by Saleem Maldonado M.D.
[2025-03-26 22:02] LABS: Troponin I < 0.012 ng/mL (0.000-0.034)
== END 2025-03-26 22:13 | disposition home or self-care (01) ==
PROVIDERS: Emergency Medicine; Emergency Provider Student in an Organized Health Care Education/Training Program; PCP Student in an Organized Health Care Education/Training Program
DX: R07.89 Other chest pain (principal); I73.9 Peripheral vascular disease, unspecified; I25.10 Atherosclerotic heart disease of native coronary artery without angina pectoris; I10 Essential (primary) hypertension; I25.2 Old myocardial infarction; E78.5 Hyperlipidemia, unspecified; Z95.1 Presence of aortocoronary bypass graft; Z87.891 Personal history of nicotine dependence; Z79.82 Long term (current) use of aspirin; Z79.02 Long term (current) use of antithrombotics/antiplatelets; Z79.899 Other long term (current) drug therapy; Z79.01 Long term (current) use of anticoagulants; R94.31 Abnormal electrocardiogram [ECG] [EKG]; R00.0 Tachycardia, unspecified
CPT/HCPCS: 36415; 71046; 80053; 83690; 84484; 85025; 85610; 85730; 93005; 99284